=== PATIENT | male | born 1960 | race Caucasian/White ===

== ENCOUNTER 2019-02-06 16:26 | Inpatient (IN) | payer OTHER, SELFPAY ==
[2019-02-06] VITALS (12 sets, daily range): BP systolic 135–148; BP diastolic 82–99; PULSE 99–123; RESP 14–28; TEMP 36.9–37.1; O2SAT 82–91; BMI 30.9; BMI 30.1
--- NOTE | 2019-02-06 16:40 | EKG12_ITS ---
Test Reason : SOB Blood Pressure : / mmHG Vent. Rate : 109 BPM Atrial Rate : 109 BPM P-R Int : 190 ms QRS Dur : 094 ms QT Int : 328 ms P-R-T Axes : 065 139 033 degrees QTc Int : 441 ms Sinus tachycardia Possible Left atrial enlargement Incomplete right bundle branch block Left posterior fascicular block Anterior infarct , age undetermined Abnormal ECG Confirmed by KENJI ALFARO, ALETA ([id number]), clinical editor HANNAH HERNANDEZ ([id number]) on 02/09/2019 4:14:38 PM Referred By: GERSON Confirmed By:ALETA PHILLIP MD
--- NOTE | 2019-02-06 16:42 | ED.VISSUMM ---
- ER Visit Summary Date of Service: 02/06/19 Chief Complaint: Shortness of breath History of Present Illness: The patient is a 58 M who presents with shortness of breath for about a month, as well as edema in his lower extremities it got much worse today. No fever chills he has a dry cough that has not worsened recently. Physical Examination: Patient appears in respiratory distress his pulse ox is 80 at room air He is got diminished breath sounds bilaterally. He has a regular tachycardia He is a soft nontender abdomen He is got bilateral symmetric pitting edema. Otherwise see template Emergency Department Course and Treatment: Patient is found to have severe COPD, there are no signs of infection, he is hypoxic will need oxygen, atraumatic peptides unremarkable but he may benefit from an echocardiogram, I do believe however his symptoms are secondary to his COPD. 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 His lower extremity edema is symmetric, I will have her get a PE study. Regardless patient will be admitted. There are no evidence of infection or sepsis at this time. Disposition: Admit in guarded condition Impression: COPD exacerbation Hypoxia This note was generated with [employer] dictation software. It may contain incorrect words, spelling, and punctuation that were not noted in review of the chart prior to signing
[2019-02-06] MEDS: MethylPREDNISolone 125 MG/2 ML Vial IV (16:46)
[2019-02-06] MEDS: Albuterol 2.5 MG/3 ML VIAL.NEB. INHALATION ×3 (16:49→17:02)
[2019-02-06] MEDS: Ipratropium/Albuterol Sulfate 3 ML AMPUL.NEB INHALATION ×2 (16:49→22:30)
[2019-02-06 17:12] LABS: Anion Gap 3 (5-15); BUN 19 mg/dL (7-18); BUN/Creat Ratio 23.2 RATIO (10-20); Calcium,Total 7.9 mg/dL (8.5-10.1); Chloride 99 mmol/L (98-107); Creatinine, Serum 0.82 mg/dL (0.70-1.30); EST Glomerular Filtration Rate 103 mL/min (>60); Est Glom Filt Rate - Afr Amer 124 mL/min (>60); Estimated Creatinine Clearance 110.97 ml/min; Glucose 99 mg/dL (74-106); Sodium Level 138 mmol/L (136-145)
[2019-02-06 17:13] LABS: Absolute Lymphocyte Count 2.09 X10^3/ul (0.83-4.51); Absolute Neutrophil Count 8.5 X10^3/uL (2.0-7.7); Basophil# 0.07 X10^3/uL; Basophil% 0.6 % (0-1); Eosinophils% 1.7 % (0-5); Hemoglobin 17.7 g/dl (13.0-16.5); Lymphocyte # 2.09 X10^3/ul (4.0); Lymphocyte % 17.4 % (19-41); Mean Corp Hgb Conc 30.2 g/gl (32-36); Mean Corpuscular Volume 86.2 fL (80-94); Monocyte# 1.15 X10^3/uL; Monocyte% 9.6 % (0-10); Neutrophil # 8.45 X10^3/uL (2.7-7.7); Neutrophil % 70.4 % (47-70); Platelet Count 164 K/mm3 (150-450); RBC Distribution Width CV 18.7 % (11.6-14.6); Red Blood Count 6.81 M/mm3 (4.6-6.2)
[2019-02-06 17:30] LABS: Hematocrit 58.7 % (40-54)
[2019-02-06 17:31] LABS: Differential Indicated SCAN CRITERIA MET; POSITIVE COUNT YES; POSITIVE DIFFERENTIAL NO; POSITIVE MORPHOLOGY YES
--- NOTE | 2019-02-06 17:35 | RAD_ITS ---
STUDY: X-RAY CHEST REASON FOR EXAM: Male, 58 years old. Shortness of breath TECHNIQUE: 1 view COMPARISON: None. FINDINGS: Marked emphysematous changes of the upper lobes. Diffuse interstitial changes most likely chronic in nature in the bilateral lower lung zones. Small geometric type can fluid and basilar opacities evident acute or chronic nature. Otherwise negative for major consolidation or pleural effusion. Normal size heart. Normal mediastinum and bel. Normal visualized pulmonary arteries. There is atherosclerotic tortuosity of the aortic arch and descending thoracic aorta. Normal visualized thoracic spine. Normal visualized ribs, clavicles, and shoulders. There is no demonstrated abnormality of the visualized soft tissue structures of the upper abdomen. RAD/Chest 1 View (Portable) IMPRESSION: Severe changes of COPD with marked emphysema of the upper lobes and diffuse interstitial changes of the mid and lower lung zones which are probably mostly chronic in nature. Occasional small geometric confluent opacity likely to be fibrosis or atelectasis. Negative for a major area of consolidation, pleural effusion or cardiomegaly. No prior exams available for comparison. Electronically Signed: Ligia Alvarez MD at 18:04 EDT , Service support ,
[2019-02-06 17:37] LABS: Anisocytosis 2+; Platelet Estimate ADEQUATE (ADEQ); Polychromasia RARE; Stomatocyte 1+
[2019-02-06 17:38] LABS: Immature Platelet Fraction 11.3 % (1.0-7.9); RET-HE 18.3 pg (30-35); Reticulocyte Count 2.58 % (0.5-1.5)
[2019-02-06 18:01] LABS: BNP,B-Type NATRIURETIC PEPTIDE 459.1 pg/mL (0-100)
--- NOTE | 2019-02-06 19:06 | CT_ITS ---
STUDY: CTA CHEST REASON FOR EXAM: Male, 58 years old. Shortness of breath, edema and COPD. RADIATION DOSAGE (If Supplied By Facility): CTDIvol = ( 21.05 ) mGy, DLP = ( 497.36 ) mGycm TECHNIQUE: The examination was performed with the intravenous administration of 100ML IV Isovue 370. Post-processing of the angiographic images was performed, with multiplanar reformation and 3D reconstruction. Individualized dose optimization techniques were used for this CT. COMPARISON: Portable chest exam of February 06, 2019 FINDINGS: The exam is not ideal for exclusion of pulmonary embolus as the contrast bolus is fairly diffuse present throughout the pulmonary and systemic system. Normal enhancement of the main pulmonary artery and right and left pulmonary arteries. Grossly negative for small peripheral pulmonary emboli. Diameter of the pulmonary artery is 4 cm which exceeds the diameter of the aorta at the same level. Mild elongation and plaque of the aorta without aneurysm or dissection. Normal heart and pericardium. Coronary calcifications. Shotty bilateral hilar lymph nodes right greater than left. Shotty subcentimeter mediastinal lymph nodes. Severe emphysematous changes of the upper lobes with larger more extensive bullous formation in the left upper lobe. Posterior bilateral lower lobe consolidation and volume loss, right greater than left. Minimal right pleural effusion. Generalized anasarca. Distended inferior vena cava. Normal osseous structures. Normal visualized upper abdomen. CT/CTA Chest W/WO Contrast IMPRESSION: Grossly negative for pulmonary embolus. Somewhat suboptimal for small peripheral pulmonary emboli secondary to flow artifact as the bolus is diffuse on the pulmonary and systemic side. Mild atherosclerotic changes of the thoracic aorta without aneurysm or dissection. Normal cardiac size with coronary calcifications. Dilated pulmonary arteries suggesting pulmonary artery hypertension. Severe bullous emphysematous changes with the most severe changes in the left upper lobe. Posterior lower lobe consolidation and volume loss, right greater than left. Pneumonic infiltrates not excludable. Minimal right pleural effusion. Shoddy hilar and mediastinal lymph nodes. Generalized anasarca with a distended inferior vena cava. Electronically Signed: Ligia Alvarez MD at 20:54 EDT , Service support ,
[2019-02-06] MEDS: Ibuprofen 600 MG Tablet PO (19:08)
--- NOTE | 2019-02-06 19:10 | HP.PCM_ITS ---
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 Also, patient complains of a six-month history of shortness of breath and with progressively worsening shortness of breath in the last week. He has a nonproductive cough especially at night. He think that his cough has not changed from his baseline. He denies any orthopnea or paroxysmal nocturnal dyspnea. At emergency department patient oxygen saturation was 80% on room air and on 5 L his oxygen saturation was 88%. His BNP on admission was 459.1. Patient does not follow-up with a marine engineering consultant. After emergency department doctor discussed the case emergency department doctor elected to order a CTPA of patient's chest. Past Medical History Medical History: Medical History (Last Updated 02/06/19 @ 19:46 by James Mancia MD) Gout M10.9 COPD (chronic obstructive pulmonary disease) J44.9 HTN (hypertension) I10 Allergies No Known Allergies Allergy (Verified 02/06/19 16:37) Home Medications: Ambulatory Orders Medication Instructions Recorded Allopurinol 300 mg PO DAILY 02/06/19 Amlodipine [Norvasc] 2.5 mg PO DAILY 02/06/19 Indomethacin [Indocin] 25 mg PO BID PRN 02/06/19 Lisinopril 40 mg PO DAILY 02/06/19 Surgical History: - - Knee cartilage surgery Lives: Alone Smoking Status: Current every day smoker Alcohol: Occasional - *Family History Maternal History Items: Cancer Paternal History Items: Heart Disease Review of Systems Constitutional: Denies: Chills, Fever, Weight Change HEENT: Denies: Head Aches, Sinus Congestion, Sinus Drainage Cardiovascular: Reports: Edema. Denies: Chest Pain, Palpitations Respiratory: Reports: Cough, Shortness of breath upon exertion Gastrointestinal: Denies: Abdominal Pain, Nausea, Vomiting Genitourinary: Denies: Dysuria Musculoskeletal: Denies: Joint Pain, Joint Tenderness Skin: Denies: Rash, Wounds Neurological: Denies: Numbness, Tingling, Focal weakness Psychiatric: Denies: Anxiety, Depression, Homicidal Ideations, Suicidal Ideations Hematologic/ Lymphatic: Denies: Easy Bruising, Easy Bleeding VTE Information - Inpt Only VTE Present on Admission: No VTE Mechan Device Prophylaxis: None VTE Pharm Prophylaxis ordered?: Yes Patient Problems: Active and Suspected Problems (Last Updated 02/06/19 @ 19:46 by James Mancia MD) Acute hypoxemic respiratory failure (Acute) Bilateral lower extremity edema (Acute) - Physical Exam General: Alert, Oriented x3, Cooperative HEENT: Atraumatic, PERRLA, EOMI, Normocephalic Neck: Supple, No JVD, Negative Carotid Bruits Lungs: Diminished, Tachypneic, Wheezes Cardiovascular: Normal S1, Normal S2, No murmurs, Tachycardic Abdomen: Bowel Sounds Present, Soft, Non Tender Extremities: Capillary Refill Less than 3 Seconds, Edema - Bilateral lower extremity pitting edema, 4+. Skin: No rashes, No breakdown Musculoskeletal: No Tenderness to Palpation of Joints or Extremities Neurological: Neuro grossly intact Psych/Mental Status: Normal Affect, Appropriate Vital Signs Temp Pulse Resp BP Pulse Ox 98.6 F 107 H 14 145/96 H 89 02/06/19 16:28 02/06/19 19:04 02/06/19 19:04 02/06/19 19:04 02/06/19 19:04 Oxygen Flow Rate (L/min) 5 Oxygen Delivery Method Nasal Cannula Weight: 106.4 kg Body Mass Index (BMI) 30.9 Laboratory Tests Past 24 Hrs 02/06/19 02/06/19 02/06/19 16:35 16:35 16:35 WBC 12.0 H RBC 6.81 H Hgb 17.7 H Hct 58.7 H MCV 86.2 MCH 26.0 L MCHC 30.2 L RDW 18.7 H RDW Differential 59.0 H Plt Count 164 Immature Gran % (Auto) 0.300 Neut % (Auto) 70.4 H Lymph % (Auto) 17.4 L [place] % (Auto) 9.6 Eos % (Auto) 1.7 Baso % (Auto) 0.6 Absolute Neuts (auto) 8.5 H Absolute Lymphs (auto) 2.09 Total Counted Not Reportable Platelet Estimate ADEQUATE Immature Plt Fraction 11.3 H Polychromasia RARE Anisocytosis 2+ Stomatocytes 1+ Retic Count 2.58 H Retic Hgb Equivalent 18.3 L Sodium 138 Potassium 5.0 Chloride 99 Carbon Dioxide 36.0 H Anion Gap 3 L BUN 19 H Creatinine 0.82 Estim Creat Clear Calc 110.97 Est GFR (MDRD) Af Amer 124 Est GFR (MDRD) Non-Af 103 BUN/Creatinine Ratio 23.2 H Glucose 99 Calcium 7.9 L Troponin I < 0.015 B-Natriuretic Peptide 459.1 H Assessment/Plan All Active Problems (Last Updated 02/06/19 @ 19:46 by James Mancia MD) Acute hypoxemic respiratory failure (Acute) Bilateral lower extremity edema (Acute) 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 Acute hypoxemic respiratory failure Different diagnosis include acute elevation of COPD; heart failure; pulmonary embolism; pulmonary fibrosis; interstitial lung disease or other. Patient received Solu-Medrol and breathing treatment at emergency department. We will continue Solu-Medrol. Scheduled DuoNeb. Albuterol ordered. After emergency department doctor discussed the case emergency department doctor elected to order a CTPA of patient's chest. We will follow results of CTPA. Consider discussing case with marine engineering consultant. In long-term patient may need to follow up with a marine engineering consultant. Continue oxygen supplementation. Bilateral leg swelling. Differential diagnosis include DVT; heart failure or other. We will wait for CTPA and consider further management. Will consider Lasix if CTPA is negative Echocardiogram ordered. Tobacco abuse Counselled Patient reported that he threw away his last package of tobacco. Nicotine patch ordered. DVT prophylaxis Will order Lovenox subcutaneous. Depending upon results of CTPA will change Lovenox dose. Code Visit Inpatient E&M: 58883 Init Hosp L3
--- NOTE | 2019-02-06 19:30 | ECHOD_ITS ---
Reason For Study: DYSPNEA Procedure This was a 2D Doppler, Color Flow transthoracic echocardiogram. The exam was of adequate technical quality. Exam performed portable in patient room. Left Ventricle Normal LV size. D shaped septum in systole and diastole. Mild concentric left ventricular hypertrophy. Left ventricular systolic function is hyperdynamic. The estimated ejection fraction is 75 %. Transmitral doppler flow suggestive of impaired relaxation of left ventricle. No regional wall motion abnormalities noted. Right Ventricle Mild to moderately dilated right ventricle. Mild to moderate global right ventricular systolic dysfunction. Atria The left atrium is mildly enlarged. The right atrium is moderately enlarged. No doppler evidence for ASD. Mitral Valve There is no mitral annular calcification. Normal mitral valve. Trivial mitral valve insufficiency. Tricuspid Valve Normal tricuspid valve. Mild tricuspid valve insufficiency. Right ventricular systolic pressure estimated to be 55 mmHg. Aortic Valve Trisinus/trileaflet aortic valve. Normal aortic valve. Pulmonic Valve The pulmonic valve is not well visualized. Great Vessels Normal sized aortic root. Pericardium/Pleural No pericardial effusion. MMode/2D Measurements & Calculations LVIDd: 4.1 cm IVSd: 1.4 cm Ao root diam: 3.4 cm LVIDs: 2.3 cm LVPWd: 1.3 cm RVDd: 4.8 cm FS: 43.1 % LAV(MOD-bp): 62.5 ml LA A4 area: 20.5 cm2 LA dimension(2D): 3.9 cm LAV(MOD-bp) Indexed: 29.0 ml/m2 LAV(MOD-sp2): 68.3 ml LAV(MOD-sp4): 56.7 ml RA A4 area: 30.3 cm2 Time Measurements MV dec time: 0.26 sec Doppler Measurements & Calculations MV E max emre: 73.3 cm/sec Lat Peak E' Emre: 13.9 cm/sec Med Peak E' Emre: 8.7 cm/sec MV A max emre: 95.2 cm/sec E/E' lat: 5.3 E/E' med: 8.4 MV E/A: 0.77 Ao V2 max: 171.8 cm/sec LV V1 max: 166.0 cm/sec PA V2 max: 103.4 cm/sec Ao max P.8 mmHg LV V1 max P.0 mmHg TR max emre: 317.7 cm/sec TR max P.4 mmHg Interpretation Summary Left ventricular systolic function is hyperdynamic. The estimated ejection fraction is 75 %. D shaped septum in systole and diastole. Mild concentric left ventricular hypertrophy. Mild to moderately dilated right ventricle. Mild to moderate global right ventricular systolic dysfunction. The left atrium is mildly enlarged. The right atrium is moderately enlarged. Trivial mitral valve insufficiency. Mild tricuspid valve insufficiency. Right ventricular systolic pressure estimated to be 55 mmHg c/w pulmonary hypertension. Transmitral doppler flow suggestive of impaired relaxation of left ventricle Ordering Physician: James Mancia Performed By: Kyara Maki, RAMBO, RVT
[2019-02-06 21:16] LABS: Albumin, Serum 2.9 g/dL (3.2-5.0)
[2019-02-06] MEDS: 0.9% NaCl Peripheral Flush Adult/Peds IV ×2 (23:01→23:03)
[2019-02-06] MEDS: Furosemide 40 MG/4 ML Vial IV (23:01)
[2019-02-07] VITALS (16 sets, daily range): BP systolic 98–128; BP diastolic 57–83; PULSE 85–114; RESP 15–18; TEMP 36.6–37.2; O2SAT 88–92
[2019-02-07] MEDS: Furosemide 40 MG/4 ML Vial IV ×2 (05:16→17:07)
[2019-02-07] MEDS: 0.9% NaCl Peripheral Flush Adult/Peds IV ×5 (05:16→21:05)
[2019-02-07 06:35] LABS: Absolute Lymphocyte Count 0.61 X10^3/ul (0.83-4.51); Absolute Neutrophil Count 8.6 X10^3/uL (2.0-7.7); Basophil# 0.01 X10^3/uL; Basophil% 0.1 % (0-1); Lymphocyte # 0.61 X10^3/ul (4.0); Lymphocyte % 6.4 % (19-41); Mean Corp Hgb Conc 29.3 g/gl (32-36); Mean Corpuscular Hgb 26.2 pg (27.0-32.0); Mean Corpuscular Volume 89.6 fL (80-94); Monocyte# 0.34 X10^3/uL; Monocyte% 3.5 % (0-10); Neutrophil # 8.61 X10^3/uL (2.7-7.7); Neutrophil % 89.7 % (47-70); Platelet Count 155 K/mm3 (150-450); RBC Distribution Width CV 18.7 % (11.6-14.6); RBC Distribution Width SD 60.3 fl (35.1-43.9); White Blood Count 9.6 K/mm3 (4.4-11.0)
[2019-02-07 06:37] LABS: Anion Gap -1 (5-15); BUN 20 mg/dL (7-18); BUN/Creat Ratio 20.7 RATIO (10-20); Calcium,Total 8.1 mg/dL (8.5-10.1); Chloride 96 mmol/L (98-107); Creatinine, Serum 0.96 mg/dL (0.70-1.30); EST Glomerular Filtration Rate 85 mL/min (>60); Est Glom Filt Rate - Afr Amer 103 mL/min (>60); Estimated Creatinine Clearance 94.79 ml/min; Glucose 165 mg/dL (74-106); Magnesium 1.9 mg/dL (1.6-2.6); Potassium 4.8 mmol/L (3.5-5.1); Sodium Level 139 mmol/L (136-145)
[2019-02-07] MEDS: Ipratropium/Albuterol Sulfate 3 ML AMPUL.NEB INHALATION ×3 (06:50→19:15)
[2019-02-07 06:59] LABS: Red Blood Count 7.05 M/mm3 (4.6-6.2)
[2019-02-07 07:02] LABS: Hematocrit 63.2 % (40-54)
[2019-02-07 07:03] LABS: Differential Indicated SCAN CRITERIA MET; Hemoglobin 18.5 g/dl (13.0-16.5); POSITIVE COUNT YES; POSITIVE DIFFERENTIAL NO; POSITIVE MORPHOLOGY YES
[2019-02-07 07:11] LABS: Burr Cells 1+; Platelet Estimate ADEQUATE (ADEQ)
--- NOTE | 2019-02-07 07:48 | PCM.PROGNOTE ---
Patient Problems: Active and Suspected Problems (Last Updated 02/06/19 @ 19:46 by James Mancia MD) Acute hypoxemic respiratory failure (Acute) Bilateral lower extremity edema (Acute) Subjective: Chief complaint: Follow-up after admission for acute hypoxic respiratory failure secondary to acute COPD exacerbation and probable acute diastolic CHF. Patient seen and examined. No acute events overnight. Patient is feeling better, reported improvement of his symptoms, feels less short of breath. Still feeling of cough. Still complaining of bilateral leg edema and that was his main presenting symptom. He denied chest pain. He is afebrile, started recorded, blood pressure stable, pulse ox is 92% on 7 L. - Physical Exam General: Alert, Oriented x3, Cooperative, - - Moderately short of breath. HEENT: Atraumatic, PERRLA, EOMI, Normocephalic Oral: Moist Mucosa, No Gingival or Mucosal Lesions/ Ulcerations Neck: Supple, No JVD, Negative Carotid Bruits, Trachea Midline, Thyroid Normal Size and Texture Lungs: Rhonchi, Short of Breath, Wheezes, - - Decreased breath sounds bilateral, bilateral rhonchi, wheezes. Cardiovascular: Regular rate, Regular Rhythm, Normal S1, Normal S2, PMI Normal, Tachycardic Abdomen: Bowel Sounds Present, Soft, Non Tender, Non-Distended, No Hepato-splenomegaly, Obese Extremities: No clubbing, No cyanosis, Edema - ++ Edema. Skin: No rashes, No breakdown Lymphatic: No Cervical, Supraclavicular, or Inguinal Adenopathy Neurological: Motor Exam 5/5 strength throughout Psych/Mental Status: Normal Affect, Appropriate, Alert and oriented to time, place, person, mood and affect Vital Signs Temp Pulse Resp BP Pulse Ox 97.9 F 110 H 18 123/79 H 91 02/07/19 05:12 02/07/19 07:03 02/07/19 05:12 02/07/19 05:12 02/07/19 05:12 Oxygen Flow Rate (L/min) 7 Oxygen Delivery Method Nasal Cannula Weight: 224 lb 10.417 oz Body Mass Index (BMI) 30.1 Intake and Output for Last 24 Hours 02/05/19 02/06/19 02/07/19 23:59 23:59 23:59 Intake Total 120 / 120 Output Total 600 / 600 Balance 120 / 120 -600 / -600 Laboratory Tests Past 24 Hrs 02/06/19 02/06/19 02/06/19 16:35 16:35 16:35 WBC 12.0 H RBC 6.81 H Hgb 17.7 H Hct 58.7 H MCV 86.2 MCH 26.0 L MCHC 30.2 L RDW 18.7 H RDW Differential 59.0 H Plt Count 164 Immature Gran % (Auto) 0.300 Neut % (Auto) 70.4 H Lymph % (Auto) 17.4 L [place] % (Auto) 9.6 Eos % (Auto) 1.7 Baso % (Auto) 0.6 Absolute Neuts (auto) 8.5 H Absolute Lymphs (auto) 2.09 Total Counted Not Reportable Differential Comment Platelet Estimate ADEQUATE Immature Plt Fraction 11.3 H Polychromasia RARE Anisocytosis 2+ Stomatocytes 1+ [place] Cells Retic Count 2.58 H Retic Hgb Equivalent 18.3 L Sodium 138 Potassium 5.0 Chloride 99 Carbon Dioxide 36.0 H Anion Gap 3 L BUN 19 H Creatinine 0.82 Estim Creat Clear Calc 110.97 Est GFR (MDRD) Af Amer 124 Est GFR (MDRD) Non-Af 103 BUN/Creatinine Ratio 23.2 H Glucose 99 Calcium 7.9 L Ionized Calcium Magnesium Troponin I < 0.015 B-Natriuretic Peptide 459.1 H Albumin 02/06/19 02/07/19 02/07/19 16:35 05:38 05:38 WBC 9.6 RBC 7.05 H Hgb 18.5 H* Hct 63.2 H MCV 89.6 MCH 26.2 L MCHC 29.3 L RDW 18.7 H RDW Differential 60.3 H Plt Count 155 Immature Gran % (Auto) 0.300 Neut % (Auto) 89.7 H Lymph % (Auto) 6.4 L [place] % (Auto) 3.5 Eos % (Auto) 0.0 Baso % (Auto) 0.1 Absolute Neuts (auto) 8.6 H Absolute Lymphs (auto) 0.61 L Total Counted Not Reportable Differential Comment Platelet Estimate ADEQUATE Immature Plt Fraction Polychromasia Anisocytosis Stomatocytes [place] Cells 1+ Retic Count Retic Hgb Equivalent Sodium Potassium Chloride Carbon Dioxide Anion Gap BUN Creatinine Estim Creat Clear Calc Est GFR (MDRD) Af Amer Est GFR (MDRD) Non-Af BUN/Creatinine Ratio Glucose Calcium Ionized Calcium Pending Magnesium Troponin I B-Natriuretic Peptide Albumin 2.9 L 02/07/19 05:38 WBC RBC Hgb Hct MCV MCH MCHC RDW RDW Differential Plt Count Immature Gran % (Auto) Neut % (Auto) Lymph % (Auto) [place] % (Auto) Eos % (Auto) Baso % (Auto) Absolute Neuts (auto) Absolute Lymphs (auto) Total Counted Differential Comment Platelet Estimate Immature Plt Fraction Polychromasia Anisocytosis Stomatocytes [place] Cells Retic Count Retic Hgb Equivalent Sodium 139 Potassium 4.8 Chloride 96 L Carbon Dioxide 44.0 H Anion Gap -1 L BUN 20 H Creatinine 0.96 Estim Creat Clear Calc 94.79 Est GFR (MDRD) Af Amer 103 Est GFR (MDRD) Non-Af 85 BUN/Creatinine Ratio 20.7 H Glucose 165 H Calcium 8.1 L Ionized Calcium Magnesium 1.9 Troponin I B-Natriuretic Peptide Albumin Clinical Impression(s) from Imaging Studies Chest X-Ray 02/06/19 17:35 IMPRESSION: Severe changes of COPD with marked emphysema of the upper lobes and diffuse interstitial changes of the mid and lower lung zones which are probably mostly chronic in nature. Occasional small geometric confluent opacity likely to be fibrosis or atelectasis. Negative for a major area of consolidation, pleural effusion or cardiomegaly. No prior exams available for comparison. Electronically Signed: Ligia Alvarez MD at 18:04 EDT , Service support , Chest CTA 02/06/19 19:06 IMPRESSION: Grossly negative for pulmonary embolus. Somewhat suboptimal for small peripheral pulmonary emboli secondary to flow artifact as the bolus is diffuse on the pulmonary and systemic side. Mild atherosclerotic changes of the thoracic aorta without aneurysm or dissection. Normal cardiac size with coronary calcifications. Dilated pulmonary arteries suggesting pulmonary artery hypertension. Severe bullous emphysematous changes with the most severe changes in the left upper lobe. Posterior lower lobe consolidation and volume loss, right greater than left. Pneumonic infiltrates not excludable. Minimal right pleural effusion. Shoddy hilar and mediastinal lymph nodes. Generalized anasarca with a distended inferior vena cava. Electronically Signed: Ligia Alvarez MD at 20:54 EDT , Service support , Medical Necessity - Tobacco Use Smoking Status: Current every day smoker Tobacco Use: Cigarettes Assessment/Plan All Active Problems (Last Updated 02/06/19 @ 19:46 by James Mancia MD) Acute hypoxemic respiratory failure (Acute) Bilateral lower extremity edema (Acute) This is a 58 years old male patient presented to the emergency room because of shortness of breath and bilateral leg edema, found to have acute COPD exacerbation complicated by acute hypoxic respiratory failure and also found to have probable acute diastolic CHF. #1 acute COPD exacerbation: Chest x-ray reviewed findings consistent with severe COPD and emphysema, no acute infiltrate or consolidation. CTA chest showed no PE or dissection, severe bullous emphysematous changes. Patient is on IV steroids, bronchodilators. He reported some improvement of his symptoms but still requiring oxygen up to 7 L. Plan: Continue same treatment, pulmonology consult. #2 acute hypoxic respiratory failure: Secondary to above in addition to probable acute CHF. Patient mentioned that he never been oxygen at home. He is on IV steroids, IV diuretics and bronchodilators. Plan as above. #3 probable acute diastolic CHF: This is based on symptoms of shortness of breath, leg edema, elevated BNP CTA findings of anasarca and distended inferior vena cava. Patient is on IV Lasix. 2D echocardiogram ordered. #4 polycythemia: Probably secondary to chronic hypoxia and exacerbated by IV diuretics. Plan to decrease IV Lasix to 40 mg IV every 12 hours, patient will need home oxygen. #5 hypertension: Blood pressure stable, continue lisinopril and Norvasc. #6 tobacco abuse: Continue NicoDerm patch. Highly recommended to quit smoking. #7 DVT prophylaxis: Subcu Lovenox. This note was generated with [employer] dictation software. It may contain incorrect words, spelling, and punctuation that were not noted in checking the note before signing. Code Visit Inpatient E&M: 74175 Subs Hosp L2
[2019-02-07] MEDS: Allopurinol 300 MG Tablet PO (08:12)
[2019-02-07] MEDS: Lisinopril 40 MG Tablet PO (08:20)
[2019-02-07] MEDS: Enoxaparin 40 MG/0.4 ML Syringe SC (08:20)
[2019-02-07] MEDS: amLODIPine 2.5 MG Tablet PO (08:20)
--- NOTE | 2019-02-07 08:21 | VDLE_ITS ---
Reason For Study: SWELLING RIGHT LEFT GSV is normal. GSV is normal. CFV is compressible, spontaneous, competent CFV is compressible, spontaneous, competent, and demonstrates pulsatile venous flow. and demonstrates pulsatile venous flow. FV is compressible, spontaneous, phasic, FV is compressible, spontaneous, phasic, competent and demonstrates normal competent and demonstrates normal augmentation. augmentation. POP V is compressible, spontaneous, phasic, POP V is compressible, spontaneous, phasic, competent and demonstrates normal competent and demonstrates normal augmentation. augmentation. T/P Trunk is compressible. T/P Trunk is compressible. PTV is compressible. PTV is compressible. RT PerV is compressible. LT PerV is compressible. Procedure Exam performed portable in patient room. A preliminary report was called and/or faxed to [facility]. Interpretation Summary Deep veins of the lower extremities are bilaterally patent and compressible segmentally. There is no evidence of deep vein thrombosis on either side. Valvular competence appears intact within the proximal deep venous systems bilaterally. The greater saphenous veins appear bilaterally patent and compressible segmentally. A non-vascular, hypoechoic structure is noted in the popliteal space bilaterally, which may represent popliteal cysts. Clinical correlation is advised. Ordering Physician: Satinder Clark Performed By: Kyara Maki, RAMBO, RVT
--- NOTE | 2019-02-07 10:05 | CON.PCM_ITS ---
Problem List (1) COPD (chronic obstructive pulmonary disease) Status: Chronic Qualifiers: COPD type: emphysema Emphysema type: centrilobular Qualified Code(s): J43.2 - Centrilobular emphysema (2) Acute hypoxemic respiratory failure Status: Acute (3) Bilateral lower extremity edema Status: Acute Reason for Consult Date of Consultation: 02/07/19 Reason for Consultation: COPD History of Present Illness: The patient is a 58 year old M, with no reported past medical history secondary to lack of evaluation, who presented to [facility] on 02/06/2019 secondary to progressive shortness of breath. Patient states that he has had progressive shortness of breath over the last month or so, but came in mainly because of significant swelling of his lower extremities. Patient does have a cough at baseline, but does not believe this was significantly worsened. Patient denied any fevers, chills, nausea or vomiting. On evaluation in the ER, patient was noted to be 80% at room air. Patient had diminished breath sounds. Patient did have a CT PE that was not diagnostic of any central obstruction, but did not have any infiltrates. Patient was admitted to the floor for further evaluation. On my arrival, patient was breathing comfortably on 7 L nasal cannula oxygen. Patient does state that he is smoked over 50 pack years, but is not routinely followed by physicians. 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 Patient has never used an inhaler, obtained a pulmonary function test or seen a butter grader. Patient does report dyspnea on exertion, but is unable to quantify his exercise tolerance. Patient denies any exposure to asbestos or TB. Patient appears to have very poor insight into his overall condition and was significantly upset by discussions about possibly needing supplemental oxygen at baseline. Patient had a negative review of systems following this discussion. Past Medical History Past Medical History (Chronic Problems): Chronic Problems (Last Updated 02/06/19 @ 19:46 by James Mancia MD) COPD (chronic obstructive pulmonary disease) (Chronic) Medical History: Medical History (Last Updated 02/06/19 @ 19:46 by James Mancia MD) Gout M10.9 COPD (chronic obstructive pulmonary disease) J44.9 HTN (hypertension) I10 Allergies No Known Allergies Allergy (Verified 02/06/19 16:37) Home Medications: Ambulatory Orders Medication Instructions Recorded Allopurinol 300 mg PO DAILY 02/06/19 Amlodipine [Norvasc] 2.5 mg PO DAILY 02/06/19 Indomethacin [Indocin] 50 mg PO BID PRN 02/06/19 Lisinopril 40 mg PO DAILY 02/06/19 Surgical History: - - Knee cartilage surgery Lives: Alone Smoking Status: Current every day smoker Tobacco Use: Cigarettes Alcohol: Occasional - *Family History Maternal History Items: Cancer Paternal History Items: Heart Disease Review of Systems Unable to obtain accurate/complete ROS d/t: See HPI Patient Problems: Active and Suspected Problems (Last Updated 02/06/19 @ 19:46 by James Mancia MD) Acute hypoxemic respiratory failure (Acute) Bilateral lower extremity edema (Acute) Objective: CT scan of the chest was personally reviewed showing extensive emphysematous changes in the apices, left greater than right. No acute infiltrates were appreciated. Patient does have dilated pulmonary arteries on my review. - Physical Exam General: Alert, Oriented x3, Cooperative, No apparent distress, - - No conversational dyspnea noted. Appears older than stated age. HEENT: Atraumatic, PERRLA, EOMI, Normocephalic, - - Slight scleral injection without icterus Oral: Moist Mucosa, No Gingival or Mucosal Lesions/ Ulcerations, - - Fair dentition Neck: Supple, No Nodes, Trachea Midline, JVD, Right Lungs: No rhonchi, No wheeze, No rales, Diminished, - - Symmetric expansion. No dullness to percussion. Cardiovascular: Regular rate, Regular Rhythm, Normal S1, Normal S2, No murmurs, No rub noted, No Gallop Abdomen: Bowel Sounds Present, Soft, Non Tender, Non-Distended Extremities: No cyanosis, Clubbing, Edema - 3+ lower extremity edema Skin: - - Venous stasis changes to lower extremities Musculoskeletal: No Tenderness to Palpation of Joints or Extremities, No Muscle Wasting Lymphatic: No Cervical, Supraclavicular, or Inguinal Adenopathy Neurological: Cranial nerves II-XII grossly intact, Neuro grossly intact - Does have decreased sensation of lower extremities Psych/Mental Status: Alert and oriented to time, place, person, mood and affect Vital Signs Temp Pulse Resp BP Pulse Ox 36.7 C 105 H 18 102/60 89 02/07/19 08:45 02/07/19 08:45 02/07/19 08:45 02/07/19 08:45 02/07/19 08:45 Oxygen Flow Rate (L/min) 8 Oxygen Delivery Method Nasal Cannula Weight: 101.9 kg Body Mass Index (BMI) 30.1 Intake and Output for Last 24 Hours 02/05/19 02/06/19 02/07/19 23:59 23:59 23:59 Intake Total 120 / 120 Output Total 600 / 600 Balance 120 / 120 -600 / -600 Laboratory Tests Past 24 Hrs 02/06/19 02/06/19 02/06/19 16:35 16:35 16:35 WBC 12.0 H RBC 6.81 H Hgb 17.7 H Hct 58.7 H MCV 86.2 MCH 26.0 L MCHC 30.2 L RDW 18.7 H RDW Differential 59.0 H Plt Count 164 Immature Gran % (Auto) 0.300 Neut % (Auto) 70.4 H Lymph % (Auto) 17.4 L [place] % (Auto) 9.6 Eos % (Auto) 1.7 Baso % (Auto) 0.6 Absolute Neuts (auto) 8.5 H Absolute Lymphs (auto) 2.09 Total Counted Not Reportable Differential Comment Platelet Estimate ADEQUATE Immature Plt Fraction 11.3 H Polychromasia RARE Anisocytosis 2+ Stomatocytes 1+ Vanessa Cells Retic Count 2.58 H Retic Hgb Equivalent 18.3 L Sodium 138 Potassium 5.0 Chloride 99 Carbon Dioxide 36.0 H Anion Gap 3 L BUN 19 H Creatinine 0.82 Estim Creat Clear Calc 110.97 Est GFR (MDRD) Af Amer 124 Est GFR (MDRD) Non-Af 103 BUN/Creatinine Ratio 23.2 H Glucose 99 Calcium 7.9 L Ionized Calcium Magnesium Troponin I < 0.015 B-Natriuretic Peptide 459.1 H Albumin 02/06/19 02/07/19 02/07/19 16:35 05:38 05:38 WBC 9.6 RBC 7.05 H Hgb 18.5 H* Hct 63.2 H MCV 89.6 MCH 26.2 L MCHC 29.3 L RDW 18.7 H RDW Differential 60.3 H Plt Count 155 Immature Gran % (Auto) 0.300 Neut % (Auto) 89.7 H Lymph % (Auto) 6.4 L [place] % (Auto) 3.5 Eos % (Auto) 0.0 Baso % (Auto) 0.1 Absolute Neuts (auto) 8.6 H Absolute Lymphs (auto) 0.61 L Total Counted Not Reportable Differential Comment Platelet Estimate ADEQUATE Immature Plt Fraction Polychromasia Anisocytosis Stomatocytes [place]essa Cells 1+ Retic Count Retic Hgb Equivalent Sodium Potassium Chloride Carbon Dioxide Anion Gap BUN Creatinine Estim Creat Clear Calc Est GFR (MDRD) Af Amer Est GFR (MDRD) Non-Af BUN/Creatinine Ratio Glucose Calcium Ionized Calcium Pending Magnesium Troponin I B-Natriuretic Peptide Albumin 2.9 L 02/07/19 05:38 WBC RBC Hgb Hct MCV MCH MCHC RDW RDW Differential Plt Count Immature Gran % (Auto) Neut % (Auto) Lymph % (Auto) [place] % (Auto) Eos % (Auto) Baso % (Auto) Absolute Neuts (auto) Absolute Lymphs (auto) Total Counted Differential Comment Platelet Estimate Immature Plt Fraction Polychromasia Anisocytosis Stomatocytes [place] Cells Retic Count Retic Hgb Equivalent Sodium 139 Potassium 4.8 Chloride 96 L Carbon Dioxide 44.0 H Anion Gap -1 L BUN 20 H Creatinine 0.96 Estim Creat Clear Calc 94.79 Est GFR (MDRD) Af Amer 103 Est GFR (MDRD) Non-Af 85 BUN/Creatinine Ratio 20.7 H Glucose 165 H Calcium 8.1 L Ionized Calcium Magnesium 1.9 Troponin I B-Natriuretic Peptide Albumin Clinical Impression(s) from Imaging Studies Chest X-Ray 02/06/19 17:35 IMPRESSION: Severe changes of COPD with marked emphysema of the upper lobes and diffuse interstitial changes of the mid and lower lung zones which are probably mostly chronic in nature. Occasional small geometric confluent opacity likely to be fibrosis or atelectasis. Negative for a major area of consolidation, pleural effusion or cardiomegaly. No prior exams available for comparison. Electronically Signed: Ligia Alvarez MD at 18:04 EDT , Service support , Chest CTA 02/06/19 19:06 IMPRESSION: Grossly negative for pulmonary embolus. Somewhat suboptimal for small peripheral pulmonary emboli secondary to flow artifact as the bolus is diffuse on the pulmonary and systemic side. Mild atherosclerotic changes of the thoracic aorta without aneurysm or dissection. Normal cardiac size with coronary calcifications. Dilated pulmonary arteries suggesting pulmonary artery hypertension. Severe bullous emphysematous changes with the most severe changes in the left upper lobe. Posterior lower lobe consolidation and volume loss, right greater than left. Pneumonic infiltrates not excludable. Minimal right pleural effusion. Shoddy hilar and mediastinal lymph nodes. Generalized anasarca with a distended inferior vena cava. Electronically Signed: Ligia Alvarze MD at 20:54 EDT , Service support , Assessment/Plan All Active Problems (Last Updated 02/06/19 @ 19:46 by James Mancia MD) Acute hypoxemic respiratory failure (Acute) Bilateral lower extremity edema (Acute) RECOMMENDATIONS: 1. Agree with empiric steroids and diuresis 2. Change lower extremity Dopplers to stat 3. Possible need for oncology evaluation for phlebotomy 4. Walking oximetry prior to discharge 5. Outpatient complete PFT 6. Smoking cessation, nicotine patch if requested IMPRESSIONS: 1. Acute hypoxic respiratory insufficiency This is likely multifactorial. Patient does have advanced emphysematous changes noted on CT scan of the chest. Patient also has dilated pulmonary arteries, vena cava and lower extremity edema indicating probable diastolic congestive heart failure. Given patient's elevated hematocrit and routine prolonged immobility, evaluation of DVT would be appropriate. Wean oxygen as tolerated. Await echocardiogram. 2. Probable secondary polycythemia Given clubbing on exam and hemoglobin of 18, concern for prolonged hypoxemia secondary to COPD and probable secondary pulmonary hypertension. Patient would be at increased risk for thrombosis. Will obtain a lower extremity Doppler stat. If positive, anticoagulation would be indicated. If negative, may consider oncology evaluation for possible phlebotomy until hypoxemia can be controlled to decrease reticulocyte response. 3. Tobacco abuse/hypertension/poor primary follow-up Complicates care, management, recovery and prognosis. Nicotine patch can be added if necessary. Continue with lisinopril and Norvasc. Will need to watch renal function closely given NATHAN inhibitor and diuretics. Code Visit Inpatient E&M: 21016 Init Hosp L3
[2019-02-07 11:37] LABS: Hemoglobin A1c 6.6 % (4.2-6.3)
--- NOTE | 2019-02-07 12:47 | CM.UR ---
RN CM Assessment Met face to face with patient for initial transition planning/care coordination assessment. Introduced myself and my role. Verb understanding and agreement for assessment. 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 Presentation: shortness of breath PCP: Dr Hargrove (pronounced Cali). Specialists: None Preferred Pharmacy: His local [facility] in [place]. Insurance: [employer] through his provider. See scanned card. Prescription Benefit: yes LNOK: Lin Prabhu, Significant Other ADLs: Independent will all ADLs. Transportation: Self. DME: None SNF/HHC: None Passport/waiver employee benefits manager: NA Advance Directives: None--gave booklet and suggested him and s.o. discuss. Explained if he is interested in more--that he should use [place] forms since [place] is his home state. DC PLAN: Plan is to dc home. He is insistent that he cannot go home on oxygen. 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 Discussed and recommended he start making some [facility] plans. Explained even if we can wean from o2 this admission, chances are he will end up on it in the future. Verb understanding. Ivelisse Masterson RN, CCM.
[2019-02-07] MEDS: Indomethacin 25 MG Capsule 50 MG PO (14:52)
[2019-02-08] VITALS (16 sets, daily range): BP systolic 96–130; BP diastolic 61–79; PULSE 96–119; RESP 16–20; TEMP 36.6–37.3; O2SAT 86–92
[2019-02-08] MEDS: Furosemide 40 MG/4 ML Vial IV ×2 (05:07→17:28)
[2019-02-08] MEDS: 0.9% NaCl Peripheral Flush Adult/Peds IV ×4 (05:07→21:21)
[2019-02-08 05:42] LABS: Absolute Lymphocyte Count 0.97 X10^3/ul (0.83-4.51); Absolute Neutrophil Count 19.9 X10^3/uL (2.0-7.7); Basophil# 0.01 X10^3/uL; Lymphocyte # 0.97 X10^3/ul (4.0); Lymphocyte % 4.4 % (19-41); Mean Corp Hgb Conc 29.1 g/gl (32-36); Mean Corpuscular Hgb 25.1 pg (27.0-32.0); Mean Corpuscular Volume 86.4 fL (80-94); Mean Platelet Vol. 11.2 fl (6.2-12.0); Monocyte% 4.1 % (0-10); Neutrophil # 19.89 X10^3/uL (2.7-7.7); Neutrophil % 91.3 % (47-70); Platelet Count 166 K/mm3 (150-450); Red Blood Count 6.76 M/mm3 (4.6-6.2); White Blood Count 21.8 K/mm3 (4.4-11.0)
[2019-02-08 05:48] LABS: Hematocrit 58.4 % (40-54); POSITIVE COUNT NO; POSITIVE DIFFERENTIAL NO; POSITIVE MORPHOLOGY NO
[2019-02-08 05:55] LABS: BUN 26 mg/dL (7-18); BUN/Creat Ratio 31.6 RATIO (10-20); Calcium,Total 8.3 mg/dL (8.5-10.1); Carbon Dioxide > 45.0 mmol/L (21.0-32.0); Chloride 95 mmol/L (98-107); Creatinine, Serum 0.82 mg/dL (0.70-1.30); EST Glomerular Filtration Rate 102 mL/min (>60); Est Glom Filt Rate - Afr Amer 124 mL/min (>60); Estimated Creatinine Clearance 110.97 ml/min; Glucose 135 mg/dL (74-106); Potassium 5.4 mmol/L (3.5-5.1); Sodium Level 140 mmol/L (136-145)
[2019-02-08] MEDS: Ipratropium/Albuterol Sulfate 3 ML AMPUL.NEB INHALATION ×3 (06:51→18:37)
--- NOTE | 2019-02-08 07:44 | PCM.PROGNOTE ---
Patient Problems: Active and Suspected Problems (Last Updated 02/06/19 @ 19:46 by James Mancia MD) Acute hypoxemic respiratory failure (Acute) Bilateral lower extremity edema (Acute) Subjective: Chief complaint: Follow-up after admission for acute hypoxic respiratory failure secondary to acute COPD exacerbation and probable acute diastolic CHF. Patient seen and examined. No acute events overnight. He reported continued slow improvement of his symptoms, feels less short of breath and feeling better. He is still requiring high flow oxygen at 7 L. Other vital signs are stable. - Physical Exam General: Alert, Oriented x3, Cooperative, No apparent distress HEENT: Atraumatic, PERRLA, EOMI, Normocephalic Oral: Moist Mucosa, No Gingival or Mucosal Lesions/ Ulcerations Neck: Supple, No JVD, Negative Carotid Bruits, Trachea Midline, Thyroid Normal Size and Texture Lungs: Diminished, Rhonchi, Short of Breath, - - Occasional wheezes. Cardiovascular: Regular rate, Regular Rhythm, Normal S1, Normal S2, No murmurs, PMI Normal Abdomen: Bowel Sounds Present, Soft, Non Tender, Non-Distended, No Hepato-splenomegaly Extremities: No clubbing, No cyanosis, Edema - + edema, improved. Skin: No breakdown, Rash Present Lymphatic: No Cervical, Supraclavicular, or Inguinal Adenopathy Neurological: Cranial nerves II-XII grossly intact, Neuro grossly intact Psych/Mental Status: Normal Affect, Appropriate, Alert and oriented to time, place, person, mood and affect Vital Signs Temp Pulse Resp BP Pulse Ox 97.9 F 100 18 112/69 89 02/08/19 03:00 02/08/19 07:30 02/08/19 03:00 02/08/19 05:03 02/08/19 05:03 Oxygen Flow Rate (L/min) 7 Oxygen Delivery Method Nasal Cannula Weight: 222 lb 7.143 oz Body Mass Index (BMI) 30.1 Intake and Output for Last 24 Hours 02/06/19 02/07/19 02/08/19 23:59 23:59 23:59 Intake Total 120 / 120 1920 / 1920 120 / 120 Output Total 1700 / 1700 575 / 575 Balance 120 / 120 220 / 220 -455 / -455 Laboratory Tests Past 24 Hrs 05/18/19 05/19/19 05/19/19 10:56 04:55 04:55 WBC 21.8 H RBC 6.76 H Hgb 17.0 H Hct 58.4 H MCV 86.4 MCH 25.1 L MCHC 29.1 L RDW 20.0 H RDW Differential 62.0 H Plt Count 166 MPV 11.2 Immature Gran % (Auto) 0.200 Neut % (Auto) 91.3 H Lymph % (Auto) 4.4 L [place] % (Auto) 4.1 Eos % (Auto) 0.0 Baso % (Auto) 0.0 Absolute Neuts (auto) 19.9 H Absolute Lymphs (auto) 0.97 Total Counted Not Reportable Sodium 140 Potassium 5.4 H Chloride 95 L Carbon Dioxide > 45.0 H* Anion Gap TNP BUN 26 H Creatinine 0.82 Estim Creat Clear Calc 110.97 Est GFR (MDRD) Af Amer 124 Est GFR (MDRD) Non-Af 102 BUN/Creatinine Ratio 31.6 H Glucose 135 H Hemoglobin A1c 6.6 H Calcium 8.3 L Medical Necessity - Tobacco Use Smoking Status: Current every day smoker Tobacco Use: Cigarettes Assessment/Plan All Active Problems (Last Updated 02/06/19 @ 19:46 by James Mancia MD) Acute hypoxemic respiratory failure (Acute) Bilateral lower extremity edema (Acute) This is a 58 years old male patient presented to the emergency room because of shortness of breath and bilateral leg edema, found to have acute COPD exacerbation complicated by acute hypoxic respiratory failure and also found to have probable acute diastolic CHF. #1 acute COPD exacerbation: He is on IV steroids and bronchodilators. Symptoms continue to improve but still requiring high flow oxygen. Chest x-ray reviewed findings consistent with severe COPD and emphysema, no acute infiltrate or consolidation. CTA chest showed no PE or dissection, severe bullous emphysematous changes. Venous Doppler of both legs was negative for acute DVT. Plan: Wean off oxygen as tolerated, patient will probably need home oxygen although he was upset about it and he mentioned that he may lose his job if he has to use the oxygen tank. Possible DC home tomorrow morning. #2 acute hypoxic respiratory failure: Secondary to above in addition to probable acute CHF. Patient mentioned that he never been oxygen at home. He is still requiring high flow oxygen. He is on IV steroids, IV diuretics and bronchodilators. Plan as above. #3 probable acute diastolic CHF: He is on IV Lasix for diuresis. Leg edema is getting better. 2D echocardiogram revealed ejection fraction of 75%, mild LVH, mild to moderate right ventricular dilatation mild to moderate global right ventricular systolic dysfunction. Plan to continue diuresis for now. #4 mild hyperkalemia: This morning, potassium is 5.4. His carbon dioxide is more than 45 likely due to compensatory metabolic alkalosis. Kidney function is normal. Plan: P.o. Kayexalate x1, repeat potassium at 8 PM tonight, repeat BMP tomorrow morning. #5 polycythemia: Probably secondary to chronic hypoxia and exacerbated by IV diuretics. Today, hemoglobin is down to 17 g/dL. Plan to monitor for now. #6 hypertension: Blood pressure stable, continue lisinopril and Norvasc. #7 tobacco abuse: Continue NicoDerm patch. Highly recommended to quit smoking. #8 DVT prophylaxis: Subcu Lovenox. This note was generated with [employer] dictation software. It may contain incorrect words, spelling, and punctuation that were not noted in checking the note before signing. Code Visit Inpatient E&M: 61550 Subs Hosp L2
[2019-02-08] MEDS: Lisinopril 40 MG Tablet PO (08:33)
[2019-02-08] MEDS: Allopurinol 300 MG Tablet PO (08:33)
[2019-02-08] MEDS: Enoxaparin 40 MG/0.4 ML Syringe SC (08:33)
[2019-02-08] MEDS: amLODIPine 2.5 MG Tablet PO (08:33)
--- NOTE | 2019-02-08 08:51 | NURSING ---
Patients oxygen weaned down to 6 liters nasal canula, pulse ox maintained at 89% while sitting in bed, eating breakfast. attempted to wean down to 5L but pulse ox dropped to 86%. oxygen turned back up to 6L, and pulse ox came back up to 89%. will monitor.
[2019-02-08] MEDS: Sodium Polystyrene Sulfonate 15 GM/60 ML UDC 30 GM PO (09:18)
--- NOTE | 2019-02-08 09:51 | PCM.PN.PUL ---
Patient Problems: Active and Suspected Problems (Last Updated 02/06/19 @ 19:46 by James Mancia MD) Acute hypoxemic respiratory failure (Acute) Bilateral lower extremity edema (Acute) Subjective: Patient reports subjective improvement in overall condition. Patient continues to have significant lower extremity edema with stretch pain. Patient denies any current chest pain, abdominal pain, nausea or vomiting. Patient tolerating p.o. diet well. Objective: Echocardiogram shows an EF of 75% with diastolic dysfunction. Right ventricular systolic pressure estimated at 55 mmHg with mild to moderate global RV systolic dysfunction. - Physical Exam General: Alert, Oriented x3, Cooperative, No apparent distress, - - No conversational dyspnea. Appears older than stated age. HEENT: Atraumatic, PERRLA, EOMI, Normocephalic, - - No scleral icterus or injection noted. Oral: Moist Mucosa, No Gingival or Mucosal Lesions/ Ulcerations Neck: Supple, No JVD, No Nodes, Trachea Midline Lungs: No rhonchi, No wheeze, No rales, Diminished Cardiovascular: Regular rate, Regular Rhythm, Normal S1, Normal S2, Murmur - Grade 2 out of 6 systolic ejection murmur, No rub noted, No Gallop Abdomen: Bowel Sounds Present, Soft, Non Tender, Non-Distended Extremities: No cyanosis, Clubbing, Edema Skin: - - No change compared to previous Musculoskeletal: No Tenderness to Palpation of Joints or Extremities Lymphatic: No Cervical, Supraclavicular, or Inguinal Adenopathy Neurological: Cranial nerves II-XII grossly intact, Neuro grossly intact Psych/Mental Status: Alert and oriented to time, place, person, mood and affect Vital Signs Temp Pulse Resp BP Pulse Ox 36.8 C 105 H 16 110/70 89 02/08/19 08:09 02/08/19 08:09 02/08/19 08:09 02/08/19 08:09 02/08/19 08:53 Oxygen Flow Rate (L/min) 6 Oxygen Delivery Method Nasal Cannula Weight: 100.9 kg Body Mass Index (BMI) 30.1 Intake and Output for Last 24 Hours 02/06/19 02/07/19 02/08/19 23:59 23:59 23:59 Intake Total 120 / 120 1920 / 1920 120 / 120 Output Total 1700 / 1700 575 / 575 Balance 120 / 120 220 / 220 -455 / -455 Laboratory Tests Past 24 Hrs 02/07/19 02/08/19 02/08/19 10:56 04:55 04:55 WBC 21.8 H RBC 6.76 H Hgb 17.0 H Hct 58.4 H MCV 86.4 MCH 25.1 L MCHC 29.1 L RDW 20.0 H RDW Differential 62.0 H Plt Count 166 MPV 11.2 Immature Gran % (Auto) 0.200 Neut % (Auto) 91.3 H Lymph % (Auto) 4.4 L [place] % (Auto) 4.1 Eos % (Auto) 0.0 Baso % (Auto) 0.0 Absolute Neuts (auto) 19.9 H Absolute Lymphs (auto) 0.97 Total Counted Not Reportable Sodium 140 Potassium 5.4 H Chloride 95 L Carbon Dioxide > 45.0 H* Anion Gap TNP BUN 26 H Creatinine 0.82 Estim Creat Clear Calc 110.97 Est GFR (MDRD) Af Amer 124 Est GFR (MDRD) Non-Af 102 BUN/Creatinine Ratio 31.6 H Glucose 135 H Hemoglobin A1c 6.6 H Calcium 8.3 L Medical Necessity - Tobacco Use Smoking Status: Current every day smoker Tobacco Use: Cigarettes Assessment/Plan All Active Problems (Last Updated 02/06/19 @ 19:46 by James Mancia MD) Acute hypoxemic respiratory failure (Acute) Bilateral lower extremity edema (Acute) RECOMMENDATIONS: 1. Agree with empiric steroids and diuresis 2. Continue to keep saturations greater than 90% at all times 3. Walking oximetry prior to discharge 4. Outpatient complete PFT 5. Smoking cessation, nicotine patch if requested IMPRESSIONS: 1. Acute hypoxic respiratory insufficiency/cor pulmonale This is likely multifactorial. Patient does have advanced emphysematous changes noted on CT scan of the chest. Patient also has dilated pulmonary arteries, vena cava and lower extremity edema indicating probable diastolic congestive heart failure. Patient does have elevated pulmonary artery pressures, likely secondary to chronic hypoxemia. Will need to continue with supplemental oxygen. High clinical suspicion that the mental oxygen will be required on discharge. Will keep patient on current steroid therapy for now, but likely transition to prednisone to complete a 5-day burst tomorrow. 2. Probable secondary polycythemia Given clubbing on exam and hemoglobin of 18, concern for prolonged hypoxemia secondary to COPD and probable secondary pulmonary hypertension. Patient would be at increased risk for thrombosis. May consider oncology evaluation for possible phlebotomy until hypoxemia can be controlled to decrease reticulocyte response. 3. Tobacco abuse/hypertension/poor primary follow-up Complicates care, management, recovery and prognosis. Nicotine patch can be added if necessary. Continue with lisinopril and Norvasc. Will need to watch renal function closely given NATHAN inhibitor and diuretics. Code Visit Inpatient E&M: 56065 Subs Hosp L3
--- NOTE | 2019-02-08 13:58 | CPS ---
PT INCREASED BACK TO 7LPM. NURSE AWARE OF CHANGE
[2019-02-08 21:24] LABS: Potassium 4.4 mmol/L (3.5-5.1)
[2019-02-08] MEDS: Indomethacin 25 MG Capsule 50 MG PO (22:25)
[2019-02-09] VITALS (17 sets, daily range): BP systolic 97–127; BP diastolic 58–80; PULSE 99–118; RESP 17–18; TEMP 36.7–37.3; O2SAT 87–91
[2019-02-09] MEDS: 0.9% NaCl Peripheral Flush Adult/Peds IV ×4 (06:02→22:16)
[2019-02-09] MEDS: Furosemide 40 MG/4 ML Vial IV ×3 (06:02→18:44)
[2019-02-09 06:10] LABS: Absolute Neutrophil Count 17.6 X10^3/uL (2.0-7.7); Hematocrit 58.1 % (40-54); Hemoglobin 16.9 g/dl (13.0-16.5); Lymphocyte % 4.6 % (19-41); Mean Corp Hgb Conc 29.1 g/gl (32-36); Mean Corpuscular Hgb 25.8 pg (27.0-32.0); Mean Corpuscular Volume 88.6 fL (80-94); Monocyte# 0.96 X10^3/uL; Monocyte% 4.9 % (0-10); Neutrophil # 17.57 X10^3/uL (2.7-7.7); Neutrophil % 90.2 % (47-70); Platelet Count 131 K/mm3 (150-450); RBC Distribution Width CV 18.5 % (11.6-14.6); RBC Distribution Width SD 59.7 fl (35.1-43.9); Red Blood Count 6.56 M/mm3 (4.6-6.2); White Blood Count 19.5 K/mm3 (4.4-11.0)
[2019-02-09 06:11] LABS: POSITIVE DIFFERENTIAL NO
[2019-02-09 06:19] LABS: BUN 27 mg/dL (7-18); Calcium,Total 8.2 mg/dL (8.5-10.1); Carbon Dioxide > 45.0 mmol/L (21.0-32.0); Chloride 92 mmol/L (98-107); EST Glomerular Filtration Rate 106 mL/min (>60); Est Glom Filt Rate - Afr Amer 129 mL/min (>60); Estimated Creatinine Clearance 113.75 ml/min; Glucose 151 mg/dL (74-106); Potassium 4.7 mmol/L (3.5-5.1); Sodium Level 142 mmol/L (136-145)
[2019-02-09 06:21] LABS: Differential Indicated SCAN CRITERIA MET; POSITIVE COUNT YES; POSITIVE MORPHOLOGY YES
[2019-02-09 07:05] LABS: Differential Comment SCANNED; Macrocytosis 1+; Microcytosis 2+; Platelet Estimate ADEQUATE (ADEQ)
[2019-02-09] MEDS: Allopurinol 300 MG Tablet PO (09:52)
[2019-02-09] MEDS: Enoxaparin 40 MG/0.4 ML Syringe SC (09:52)
[2019-02-09] MEDS: amLODIPine 2.5 MG Tablet PO (09:53)
[2019-02-09] MEDS: Lisinopril 40 MG Tablet PO (09:53)
--- NOTE | 2019-02-09 11:26 | PCM.PN.PUL ---
Patient Problems: Active and Suspected Problems (Last Updated 02/06/19 @ 19:46 by James Mancia MD) Acute hypoxemic respiratory failure (Acute) Bilateral lower extremity edema (Acute) Subjective: The patient was seen and examined at the bedside this morning. Events from the last 24 hours have been reviewed. The patient is currently afebrile, hemodynamically stable and maintaining appropriate oxygen saturations on 6 L/min via nasal cannula. Although the patient reports subjective improvement in his breathing quality, he does continue to require a significant amount of supplemental oxygen. The patient states that he quit smoking completely 3 days ago. While he is agreeable to seeing a railway signalling engineer, he reports that it would need to be one in [place] as that is where he currently resides. 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 Objective: The patient's most recent lab work, culture data and imaging studies have all been personally reviewed. Echocardiogram shows an EF of 75% with diastolic dysfunction. Right ventricular systolic pressure estimated at 55 mmHg with mild to moderate global RV systolic dysfunction. - Physical Exam General: Alert, Cooperative, No apparent distress HEENT: Atraumatic, PERRLA, Normocephalic Oral: No Gingival or Mucosal Lesions/ Ulcerations Neck: Supple, No Nodes, Trachea Midline Lungs: - - Globally diminished air movement bilaterally with prolonged expiratory phase Cardiovascular: Regular rate, Regular Rhythm, Normal S1, Normal S2, Murmur Abdomen: Bowel Sounds Present, Soft, Non Tender Extremities: No cyanosis, Clubbing, Edema Skin: No breakdown Musculoskeletal: No Muscle Wasting Lymphatic: No Cervical, Supraclavicular, or Inguinal Adenopathy Neurological: Neuro grossly intact Psych/Mental Status: Normal Affect, Appropriate Vital Signs Temp Pulse Resp BP Pulse Ox 98.3 F 109 H 18 111/73 90 02/09/19 09:20 02/09/19 11:02 02/09/19 09:20 02/09/19 09:20 02/09/19 09:20 Oxygen Flow Rate (L/min) 6 Oxygen Delivery Method Nasal Cannula Weight: 213 lb 2.992 oz Body Mass Index (BMI) 30.1 Intake and Output for Last 24 Hours 02/07/19 02/08/19 02/09/19 23:59 23:59 23:59 Intake Total 1920 / 1920 2240 / 2240 Output Total 1700 / 1700 4875 / 4875 700 / 700 Balance 220 / 220 -2635 / -2635 -700 / -700 Laboratory Tests Past 24 Hrs 02/08/19 02/09/19 02/09/19 20:20 05:35 05:35 WBC 19.5 H RBC 6.56 H Hgb 16.9 H Hct 58.1 H MCV 88.6 MCH 25.8 L MCHC 29.1 L RDW 18.5 H RDW Differential 59.7 H Plt Count 131 L Immature Gran % (Auto) 0.300 Neut % (Auto) 90.2 H Lymph % (Auto) 4.6 L [place] % (Auto) 4.9 Eos % (Auto) 0.0 Baso % (Auto) 0.0 Absolute Neuts (auto) 17.6 H Absolute Lymphs (auto) 0.90 Total Counted Not Reportable Differential Comment SCANNED Platelet Estimate ADEQUATE Microcytosis 2+ Macrocytosis 1+ Sodium 142 Potassium 4.4 4.7 Chloride 92 L Carbon Dioxide > 45.0 H* Anion Gap TNP BUN 27 H Creatinine 0.80 Estim Creat Clear Calc 113.75 Est GFR (MDRD) Af Amer 129 Est GFR (MDRD) Non-Af 106 BUN/Creatinine Ratio 34.0 H Glucose 151 H Calcium 8.2 L Clinical Impression(s) from Imaging Studies Chest X-Ray 02/06/19 17:35 IMPRESSION: Severe changes of COPD with marked emphysema of the upper lobes and diffuse interstitial changes of the mid and lower lung zones which are probably mostly chronic in nature. Occasional small geometric confluent opacity likely to be fibrosis or atelectasis. Negative for a major area of consolidation, pleural effusion or cardiomegaly. No prior exams available for comparison. Electronically Signed: Ligia Alvarez MD at 18:04 EDT , Service support , Chest CTA 02/06/19 19:06 IMPRESSION: Grossly negative for pulmonary embolus. Somewhat suboptimal for small peripheral pulmonary emboli secondary to flow artifact as the bolus is diffuse on the pulmonary and systemic side. Mild atherosclerotic changes of the thoracic aorta without aneurysm or dissection. Normal cardiac size with coronary calcifications. Dilated pulmonary arteries suggesting pulmonary artery hypertension. Severe bullous emphysematous changes with the most severe changes in the left upper lobe. Posterior lower lobe consolidation and volume loss, right greater than left. Pneumonic infiltrates not excludable. Minimal right pleural effusion. Shoddy hilar and mediastinal lymph nodes. Generalized anasarca with a distended inferior vena cava. Electronically Signed: Ligia Alvarez MD at 20:54 EDT , Service support , Medical Necessity - Tobacco Use Smoking Status: Current every day smoker Tobacco Use: Cigarettes Assessment/Plan All Active Problems (Last Updated 02/06/19 @ 19:46 by James Mancia MD) Acute hypoxemic respiratory failure (Acute) Bilateral lower extremity edema (Acute) RECOMMENDATIONS: 1. Continue steroids and diuretic therapy. 2. Continue to keep saturations greater than 88% at all times 3. Walking oximetry prior to discharge 4. Outpatient complete PFT 5. Smoking cessation, nicotine patch if requested IMPRESSIONS: 1. Acute hypoxic respiratory insufficiency/cor pulmonale This is likely multifactorial. Patient does have advanced emphysematous changes noted on CT scan of the chest. Patient also has dilated pulmonary arteries, vena cava and lower extremity edema indicating probable diastolic congestive heart failure. Patient does have elevated pulmonary artery pressures, likely secondary to chronic hypoxemia. Will need to continue with supplemental oxygen. High clinical suspicion that the supplemental oxygen will be required on discharge. Will keep patient on current steroid therapy for now, but likely transition to prednisone to complete a 5-day burst, beginning tomorrow. The patient will need to establish care with a railway signalling engineer that is local to him in [place]. 2. Probable secondary polycythemia Given clubbing on exam and hemoglobin of 18, concern for prolonged hypoxemia secondary to COPD and probable secondary pulmonary hypertension. 3. Tobacco abuse/hypertension/poor primary follow-up Complicates care, management, recovery and prognosis. Nicotine patch can be added if necessary. Continue with lisinopril and Norvasc. Will need to watch renal function closely given NATHAN inhibitor and diuretics. This note was generated with [employer] software. It may contain incorrect words, spelling, and punctuation that were not noted in checking the note before signing. Code Visit Inpatient E&M: 81551 Subs Hosp L2
--- NOTE | 2019-02-09 12:04 | PCM.PN.HOSP ---
Patient Problems: Active and Suspected Problems (Last Updated 02/06/19 @ 19:46 by James Mancia MD) Acute hypoxemic respiratory failure (Acute) Bilateral lower extremity edema (Acute) Vitals/I&O's: Vital Signs Temp Pulse Resp BP Pulse Ox 98.3 F 109 H 18 111/73 90 02/09/19 09:20 02/09/19 11:02 02/09/19 09:20 02/09/19 09:20 02/09/19 09:20 Oxygen Flow Rate (L/min) 6 Oxygen Delivery Method Nasal Cannula Weight: 96.7 kg Body Mass Index (BMI) 30.1 Intake and Output for Last 24 Hours 02/07/19 02/08/19 02/09/19 23:59 23:59 23:59 Intake Total 1920 / 1920 2240 / 2240 Output Total 1700 / 1700 4875 / 4875 700 / 700 Balance 220 / 220 -2635 / -2635 -700 / -700 Laboratory Results 02/08/19 20:20: Potassium 4.4 02/09/19 05:35: WBC 19.5 H, RBC 6.56 H, Hgb 16.9 H, Hct 58.1 H, MCV 88.6, MCH 25.8 L, MCHC 29.1 L, RDW 18.5 H, RDW Differential 59.7 H, Plt Count 131 L, Immature Gran % (Auto) 0.300, Neut % (Auto) 90.2 H, Lymph % (Auto) 4.6 L, [place] % (Auto) 4.9, Eos % (Auto) 0.0, Baso % (Auto) 0.0, Absolute Neuts (auto) 17.6 H, Absolute Lymphs (auto) 0.90, Total Counted Not Reportable, Differential Comment SCANNED, Platelet Estimate ADEQUATE, Microcytosis 2+, Macrocytosis 1+ 02/09/19 05:35: Sodium 142, Potassium 4.7, Chloride 92 L, Carbon Dioxide > 45.0 H*, Anion Gap TNP, BUN 27 H, Creatinine 0.80, Estim Creat Clear Calc 113.75, Est GFR (MDRD) Af Amer 129, Est GFR (MDRD) Non-Af 106, BUN/Creatinine Ratio 34.0 H, Glucose 151 H, Calcium 8.2 L Current Medications Acetaminophen (Tylenol) 650 mg PO Q6H PRN PRN PRN Reason: Mild Pain (1-3)/Temp > 100.7 F Albuterol Sulfate (Ventolin Aerosols) 2.5 mg INHALATION Q2H PRN PRN PRN Reason: Shortness of Breath/Wheezing Albuterol/Ipratropium (Duoneb) 3 ml INHALATION Q6HWA.RT [facility] Last Admin: 02/09/19 06:40 Dose: Not Given [facility] Last Admin: 02/09/19 09:52 Dose: 300 mg Amlodipine Besylate (Norvasc) 2.5 mg PO DAILY [facility] Last Admin: 02/09/19 09:53 Dose: 2.5 mg Dextrose (D50w Syringe) 0 gm IV X1 PRN; Protocol PRN Reason: Hypoglycemia Enoxaparin Sodium (Lovenox) 40 mg SC DAILY@1000 [facility] Last Admin: 02/09/19 09:52 Dose: 40 mg Furosemide (Lasix) 40 mg IV 0600,1200,1800 [facility] Glucagon () 1 mg IM .X1 PRN PRN Reason: Hypoglycemia Indomethacin (Indocin) 50 mg PO BID PRN PRN Reason: PAIN Last Admin: 02/08/19 22:25 Dose: 50 mg Lisinopril (Zestril) 40 mg PO DAILY [facility] Last Admin: 02/09/19 09:53 Dose: 40 mg Melatonin (Melatonin) 3 mg PO QHS PRN PRN PRN Reason: INSOMNIA Methylprednisolone (Solu-Medrol) 40 mg IV Q8 [facility] Last Admin: 02/09/19 06:02 Dose: 40 mg Nicotine (Nicoderm Cq (Pbkc)) 21 mg TRANSDERM. DAILY [facility] Last Admin: 02/09/19 09:53 Dose: 21 mg Ondansetron HCl (Zofran) 4 mg IV Q8H PRN PRN PRN Reason: NAUSEA/VOMITING Sodium Chloride () 5 - 15 ml IV UD PRN PRN Reason: SALINE FLUSH Last Admin: 02/09/19 06:02 Dose: 15 ml Medical Necessity - Tobacco Use Smoking Status: Current every day smoker Tobacco Use: Cigarettes Assessment/Plan All Active Problems (Last Updated 02/06/19 @ 19:46 by James Mancia MD) Acute hypoxemic respiratory failure (Acute) Bilateral lower extremity edema (Acute)
--- NOTE | 2019-02-09 12:04 | PCM.PN.HOSP ---
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 An assessment of COPD with acute exacerbation and acute diastolic congestive heart failure made admitted to a monitored bed for further management Objective: GENERAL: cooperative dyspneic at rest HEENT: Atraumatic; moist oral mucosa EYES; Anicteric, Normal Conjunctiva NECK; supple, normal thyroid, RESPIRATORY: Diminished to auscultation bilaterally, CARDIOVASCULAR: Regular S1 S2, GI: soft, non-tender, normoactive bowel sounds, : No Renal angle tenderness; EXTREMITIES: No edema, no clubbing, MUSCULOSKELETAL: No Joint Tenderness; NEURO: Awake; no lateralizing signs. SKIN: Facial plethora PSYCH; Normal affect Vitals/I&O's: Vital Signs Temp Pulse Resp BP Pulse Ox 98.3 F 109 H 18 111/73 90 02/09/19 09:20 02/09/19 11:02 02/09/19 09:20 02/09/19 09:20 02/09/19 09:20 Oxygen Flow Rate (L/min) 6 Oxygen Delivery Method Nasal Cannula Weight: 96.7 kg Body Mass Index (BMI) 30.1 Intake and Output for Last 24 Hours 02/07/19 02/08/19 02/09/19 23:59 23:59 23:59 Intake Total 1920 / 1920 2240 / 2240 Output Total 1700 / 1700 4875 / 4875 700 / 700 Balance 220 / 220 -2635 / -2635 -700 / -700 Laboratory Results 02/08/19 20:20: Potassium 4.4 02/09/19 05:35: WBC 19.5 H, RBC 6.56 H, Hgb 16.9 H, Hct 58.1 H, MCV 88.6, MCH 25.8 L, MCHC 29.1 L, RDW 18.5 H, RDW Differential 59.7 H, Plt Count 131 L, Immature Gran % (Auto) 0.300, Neut % (Auto) 90.2 H, Lymph % (Auto) 4.6 L, [place] % (Auto) 4.9, Eos % (Auto) 0.0, Baso % (Auto) 0.0, Absolute Neuts (auto) 17.6 H, Absolute Lymphs (auto) 0.90, Total Counted Not Reportable, Differential Comment SCANNED, Platelet Estimate ADEQUATE, Microcytosis 2+, Macrocytosis 1+ 02/09/19 05:35: Sodium 142, Potassium 4.7, Chloride 92 L, Carbon Dioxide > 45.0 H*, Anion Gap TNP, BUN 27 H, Creatinine 0.80, Estim Creat Clear Calc 113.75, Est GFR (MDRD) Af Amer 129, Est GFR (MDRD) Non-Af 106, BUN/Creatinine Ratio 34.0 H, Glucose 151 H, Calcium 8.2 L Current Medications Acetaminophen (Tylenol) 650 mg PO Q6H PRN PRN PRN Reason: Mild Pain (1-3)/Temp > 100.7 F Albuterol Sulfate (Ventolin Aerosols) 2.5 mg INHALATION Q2H PRN PRN PRN Reason: Shortness of Breath/Wheezing Albuterol/Ipratropium (Duoneb) 3 ml INHALATION Q6HWA.RT [facility] Last Admin: 02/09/19 06:40 Dose: Not Given Allopurinol (Zyloprim) 300 mg PO DAILYCM [facility] Last Admin: 02/09/19 09:52 Dose: 300 mg Amlodipine Besylate (Norvasc) 2.5 mg PO DAILY [facility] Last Admin: 02/09/19 09:53 Dose: 2.5 mg Dextrose (D50w Syringe) 0 gm IV X1 PRN; Protocol PRN Reason: Hypoglycemia Enoxaparin Sodium (Lovenox) 40 mg SC DAILY@1000 [facility] Last Admin: 02/09/19 09:52 Dose: 40 mg Furosemide (Lasix) 40 mg IV 0600,1200,1800 [facility] Glucagon () 1 mg IM .X1 PRN PRN Reason: Hypoglycemia Indomethacin (Indocin) 50 mg PO BID PRN PRN Reason: PAIN Last Admin: 02/08/19 22:25 Dose: 50 mg Lisinopril (Zestril) 40 mg PO DAILY [facility] Last Admin: 02/09/19 09:53 Dose: 40 mg Melatonin (Melatonin) 3 mg PO QHS PRN PRN PRN Reason: INSOMNIA Methylprednisolone (Solu-Medrol) 40 mg IV Q8 [facility] Last Admin: 02/09/19 06:02 Dose: 40 mg Nicotine (Nicoderm Cq (Pbkc)) 21 mg TRANSDERM. 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 An assessment of COPD with acute exacerbation and acute diastolic congestive heart failure made admitted to a monitored bed for further management 1. Acute hypoxic and hypercapnic respiratory failure secondary to COPD with exacerbation as well as acute congestive heart failure. Patient still remains significantly hypoxic despite optimal treatment. Patient is apparently a heavy truck mechanic had a discussion with him regarding the fact that he will probably be dependent on oxygen he stated that he may lose his job if he has to wear oxygen. Recommended to patient to speak with his employer's to change jobs and moved to the office. 2. Acute COPD exacerbation patient was managed with aerosol treatment, systemic steroids and supplemental oxygen. 3. Acute congestive heart failure with preserved ejection fraction echo obtained demonstrated EF of 75% with mild left ventricular hypertrophy and mild to moderate right ventricular dilatation. Patient is on Lasix 4. Polycythemia secondary to chronic hypoxia from patient severe COPD and continued smoking 5. Hyperkalemia corrected per protocol 6. Hypertension-blood pressure controlled, home medications continued with dose adjustment as needed 7. Tobacco dependence counseled on cessation, offered nicotine patch for tobacco cravings 8. DVT prophylaxis Lovenox Active Medications Acetaminophen (Tylenol) 650 mg PO Q6H PRN PRN PRN Reason: Mild Pain (1-3)/Temp > 100.7 F Albuterol Sulfate (Ventolin Aerosols) 2.5 mg INHALATION Q2H PRN PRN PRN Reason: Shortness of Breath/Wheezing Albuterol/Ipratropium (Duoneb) 3 ml INHALATION Q6HWA.RT [facility] Last Admin: 02/09/19 06:40 Dose: Not Given Allopurinol (Zyloprim) 300 mg PO DAILYCM [facility] Last Admin: 02/09/19 09:52 Dose: 300 mg Amlodipine Besylate (Norvasc) 2.5 mg PO DAILY [facility] Last Admin: 02/09/19 09:53 Dose: 2.5 mg Dextrose (D50w Syringe) 0 gm IV X1 PRN; Protocol PRN Reason: Hypoglycemia Enoxaparin Sodium (Lovenox) 40 mg SC DAILY@1000 [facility] Last Admin: 02/09/19 09:52 Dose: 40 mg Furosemide (Lasix) 40 mg IV 0600,1200,1800 [facility] Glucagon () 1 mg IM .X1 PRN PRN Reason: Hypoglycemia Indomethacin (Indocin) 50 mg PO BID PRN PRN Reason: PAIN Last Admin: 02/08/19 22:25 Dose: 50 mg Lisinopril (Zestril) 40 mg PO DAILY [facility] Last Admin: 02/09/19 09:53 Dose: 40 mg Melatonin (Melatonin) 3 mg PO QHS PRN PRN PRN Reason: INSOMNIA Methylprednisolone (Solu-Medrol) 40 mg IV Q8 [facility] Last Admin: 02/09/19 06:02 Dose: 40 mg Nicotine (Nicoderm Cq (Pbkc)) 21 mg TRANSDERM. DAILY [facility] Last Admin: 02/09/19 09:53 Dose: 21 mg Ondansetron HCl (Zofran) 4 mg IV Q8H PRN PRN PRN Reason: NAUSEA/VOMITING Sodium Chloride () 5 - 15 ml IV UD PRN PRN Reason: SALINE FLUSH Last Admin: 02/09/19 06:02 Dose: 15 ml Clinical Impression(s) from Imaging Studies Chest X-Ray 02/06/19 17:35 IMPRESSION: Severe changes of COPD with marked emphysema of the upper lobes and diffuse interstitial changes of the mid and lower lung zones which are probably mostly chronic in nature. Occasional small geometric confluent opacity likely to be fibrosis or atelectasis. Negative for a major area of consolidation, pleural effusion or cardiomegaly. No prior exams available for comparison. Electronically Signed: Ligia Alvarez MD at 18:04 EDT , Service support , Chest CTA 02/06/19 19:06 IMPRESSION: Grossly negative for pulmonary embolus. Somewhat suboptimal for small peripheral pulmonary emboli secondary to flow artifact as the bolus is diffuse on the pulmonary and systemic side. Mild atherosclerotic changes of the thoracic aorta without aneurysm or dissection. Normal cardiac size with coronary calcifications. Dilated pulmonary arteries suggesting pulmonary artery hypertension. Severe bullous emphysematous changes with the most severe changes in the left upper lobe. Posterior lower lobe consolidation and volume loss, right greater than left. Pneumonic infiltrates not excludable. Minimal right pleural effusion. Shoddy hilar and mediastinal lymph nodes. Generalized anasarca with a distended inferior vena cava. Electronically Signed: Ligia Alvarez MD at 20:54 EDT , Service support , Code Visit Inpatient E&M: 74225 Subs Hosp L2
--- NOTE | 2019-02-09 12:10 | PN_ITS ---
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 An assessment of COPD with acute exacerbation and acute diastolic congestive heart failure made admitted to a monitored bed for further management Objective: GENERAL: cooperative dyspneic at rest HEENT: Atraumatic; moist oral mucosa EYES; Anicteric, Normal Conjunctiva NECK; supple, normal thyroid, RESPIRATORY: Diminished to auscultation bilaterally, CARDIOVASCULAR: Regular S1 S2, GI: soft, non-tender, normoactive bowel sounds, : No Renal angle tenderness; EXTREMITIES: No edema, no clubbing, MUSCULOSKELETAL: No Joint Tenderness; NEURO: Awake; no lateralizing signs. SKIN: Facial plethora PSYCH; Normal affect Vitals/I&O's: Vital Signs Temp Pulse Resp BP Pulse Ox 98.3 F 109 H 18 111/73 90 02/09/19 09:20 02/09/19 11:02 02/09/19 09:20 02/09/19 09:20 02/09/19 09:20 Oxygen Flow Rate (L/min) 6 Oxygen Delivery Method Nasal Cannula Weight: 96.7 kg Body Mass Index (BMI) 30.1 Intake and Output for Last 24 Hours 02/07/19 02/08/19 02/09/19 23:59 23:59 23:59 Intake Total 1920 / 1920 2240 / 2240 Output Total 1700 / 1700 4875 / 4875 700 / 700 Balance 220 / 220 -2635 / -2635 -700 / -700 Laboratory Results 02/08/19 20:20: Potassium 4.4 02/09/19 05:35: WBC 19.5 H, RBC 6.56 H, Hgb 16.9 H, Hct 58.1 H, MCV 88.6, MCH 25.8 L, MCHC 29.1 L, RDW 18.5 H, RDW Differential 59.7 H, Plt Count 131 L, Immature Gran % (Auto) 0.300, Neut % (Auto) 90.2 H, Lymph % (Auto) 4.6 L, Harmon % (Auto) 4.9, Eos % (Auto) 0.0, Baso % (Auto) 0.0, Absolute Neuts (auto) 17.6 H, Absolute Lymphs (auto) 0.90, Total Counted Not Reportable, Differential Comment SCANNED, Platelet Estimate ADEQUATE, Microcytosis 2+, Macrocytosis 1+ 02/09/19 05:35: Sodium 142, Potassium 4.7, Chloride 92 L, Carbon Dioxide > 45.0 H*, Anion Gap TNP, BUN 27 H, Creatinine 0.80, Estim Creat Clear Calc 113.75, Est GFR (MDRD) Af Amer 129, Est GFR (MDRD) Non-Af 106, BUN/Creatinine Ratio 34.0 H, Glucose 151 H, Calcium 8.2 L Current Medications Acetaminophen (Tylenol) 650 mg PO Q6H PRN PRN PRN Reason: Mild Pain (1-3)/Temp > 100.7 F Albuterol Sulfate (Ventolin Aerosols) 2.5 mg INHALATION Q2H PRN PRN PRN Reason: Shortness of Breath/Wheezing Albuterol/Ipratropium (Duoneb) 3 ml INHALATION Q6HWA.RT [facility] Last Admin: 02/09/19 06:40 Dose: Not Given Allopurinol (Zyloprim) 300 mg PO DAILYCM [facility] Last Admin: 02/09/19 09:52 Dose: 300 mg Amlodipine Besylate (Norvasc) 2.5 mg PO DAILY [facility] Last Admin: 02/09/19 09:53 Dose: 2.5 mg Dextrose (D50w Syringe) 0 gm IV X1 PRN; Protocol PRN Reason: Hypoglycemia Enoxaparin Sodium (Lovenox) 40 mg SC DAILY@1000 [facility] Last Admin: 02/09/19 09:52 Dose: 40 mg Furosemide (Lasix) 40 mg IV 0600,1200,1800 [facility] Glucagon () 1 mg IM .X1 PRN PRN Reason: Hypoglycemia Indomethacin (Indocin) 50 mg PO BID PRN PRN Reason: PAIN Last Admin: 02/08/19 22:25 Dose: 50 mg Lisinopril (Zestril) 40 mg PO DAILY [facility] Last Admin: 02/09/19 09:53 Dose: 40 mg Melatonin (Melatonin) 3 mg PO QHS PRN PRN PRN Reason: INSOMNIA Methylprednisolone (Solu-Medrol) 40 mg IV Q8 [facility] Last Admin: 02/09/19 06:02 Dose: 40 mg Nicotine (Nicoderm Cq (Pbkc)) 21 mg TRANSDERM. 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 An assessment of COPD with acute exacerbation and acute diastolic congestive heart failure made admitted to a monitored bed for further management 1. Acute hypoxic and hypercapnic respiratory failure secondary to COPD with exacerbation as well as acute congestive heart failure. Patient still remains significantly hypoxic despite optimal treatment. Patient is apparently a truck loader and unloader had a discussion with him regarding the fact that he will probably be dependent on oxygen he stated that he may lose his job if he has to wear oxygen. Recommended to patient to speak with his employer's to change jobs and moved to the office. 2. Acute COPD exacerbation patient was managed with aerosol treatment, systemic steroids and supplemental oxygen. 3. Acute congestive heart failure with preserved ejection fraction echo obtained demonstrated EF of 75% with mild left ventricular hypertrophy and mild to moderate right ventricular dilatation. Patient is on Lasix 4. Polycythemia secondary to chronic hypoxia from patient severe COPD and continued smoking 5. Hyperkalemia corrected per protocol 6. Hypertension-blood pressure controlled, home medications continued with dose adjustment as needed 7. Tobacco dependence counseled on cessation, offered nicotine patch for tobacco cravings 8. DVT prophylaxis Lovenox Active Medications Acetaminophen (Tylenol) 650 mg PO Q6H PRN PRN PRN Reason: Mild Pain (1-3)/Temp > 100.7 F Albuterol Sulfate (Ventolin Aerosols) 2.5 mg INHALATION Q2H PRN PRN PRN Reason: Shortness of Breath/Wheezing Albuterol/Ipratropium (Duoneb) 3 ml INHALATION Q6HWA.RT [facility] Last Admin: 02/09/19 06:40 Dose: Not Given Allopurinol (Zyloprim) 300 mg PO DAILYCM [facility] Last Admin: 02/09/19 09:52 Dose: 300 mg Amlodipine Besylate (Norvasc) 2.5 mg PO DAILY [facility] Last Admin: 02/09/19 09:53 Dose: 2.5 mg Dextrose (D50w Syringe) 0 gm IV X1 PRN; Protocol PRN Reason: Hypoglycemia Enoxaparin Sodium (Lovenox) 40 mg SC DAILY@1000 [facility] Last Admin: 02/09/19 09:52 Dose: 40 mg Furosemide (Lasix) 40 mg IV 0600,1200,1800 [facility] Glucagon () 1 mg IM .X1 PRN PRN Reason: Hypoglycemia Indomethacin (Indocin) 50 mg PO BID PRN PRN Reason: PAIN Last Admin: 02/08/19 22:25 Dose: 50 mg Lisinopril (Zestril) 40 mg PO DAILY [facility] Last Admin: 02/09/19 09:53 Dose: 40 mg Melatonin (Melatonin) 3 mg PO QHS PRN PRN PRN Reason: INSOMNIA Methylprednisolone (Solu-Medrol) 40 mg IV Q8 [facility] Last Admin: 02/09/19 06:02 Dose: 40 mg Nicotine (Nicoderm Cq (Pbkc)) 21 mg TRANSDERM. DAILY [facility] Last Admin: 02/09/19 09:53 Dose: 21 mg Ondansetron HCl (Zofran) 4 mg IV Q8H PRN PRN PRN Reason: NAUSEA/VOMITING Sodium Chloride () 5 - 15 ml IV UD PRN PRN Reason: SALINE FLUSH Last Admin: 02/09/19 06:02 Dose: 15 ml Clinical Impression(s) from Imaging Studies Chest X-Ray 02/06/19 17:35 IMPRESSION: Severe changes of COPD with marked emphysema of the upper lobes and diffuse interstitial changes of the mid and lower lung zones which are probably mostly chronic in nature. Occasional small geometric confluent opacity likely to be fibrosis or atelectasis. Negative for a major area of consolidation, pleural effusion or cardiomegaly. No prior exams available for comparison. Electronically Signed: Ligia Alvarez MD at 18:04 EDT , Service support , Chest CTA 02/06/19 19:06 IMPRESSION: Grossly negative for pulmonary embolus. Somewhat suboptimal for small peripheral pulmonary emboli secondary to flow artifact as the bolus is diffuse on the pulmonary and systemic side. Mild atherosclerotic changes of the thoracic aorta without aneurysm or dissection. Normal cardiac size with coronary calcifications. Dilated pulmonary arteries suggesting pulmonary artery hypertension. Severe bullous emphysematous changes with the most severe changes in the left upper lobe. Posterior lower lobe consolidation and volume loss, right greater than left. Pneumonic infiltrates not excludable. Minimal right pleural effusion. Shoddy hilar and mediastinal lymph nodes. Generalized anasarca with a distended inferior vena cava. Electronically Signed: Ligia Alvarez MD at 20:54 EDT , Service support , Code Visit Inpatient E&M: 49020 Subs Hosp L2
[2019-02-09] MEDS: Ipratropium/Albuterol Sulfate 3 ML AMPUL.NEB INHALATION ×2 (13:05→19:16)
--- NOTE | 2019-02-09 13:35 | CPS ---
ABG ATTEMPTED AND VENOUS SAMPLE OBTAINED. BLOOD GAS RESULTS TO DR. SALCEDO. NO NEW ORDERS RECEIVED AT THIS TIME.
[2019-02-09 13:46] LABS: O2 Delivery Device Nasal Can; SITE R Radial; Time Given 1325; VBG BASE EXCESS 26 mmol/L (-1.0-3.5); VBG Bicarbonate 52 mmol/L (22-26); VBG PO2 34 mmHg (25-40); VBG SO2 58 % (50-70); VBG pCO2 90.6 mmHg (41-51); VBG pH 7.36 (7.32-7.42)
[2019-02-09 14:36] LABS: Blood Gas Specimen Type VEN
[2019-02-09 14:37] LABS: VBG Oxygen Content > 50 mmol/L (23-33)
[2019-02-09] MEDS: Indomethacin 25 MG Capsule 50 MG PO (23:24)
[2019-02-10] VITALS (8 sets, daily range): BP systolic 121–134; BP diastolic 75–80; PULSE 98–112; RESP 16–20; TEMP 36.4–36.6; O2SAT 80–90
[2019-02-10] MEDS: 0.9% NaCl Peripheral Flush Adult/Peds IV ×3 (05:51→05:54)
[2019-02-10] MEDS: Furosemide 40 MG/4 ML Vial IV ×2 (05:54→12:12)
[2019-02-10] MEDS: Ipratropium/Albuterol Sulfate 3 ML AMPUL.NEB INHALATION ×2 (06:52→13:11)
--- NOTE | 2019-02-10 09:05 | DCINST_ITS ---
- Discharge Diagnoses Current Active Problems: Current Active and Chronic Problems (Last Updated 02/06/19 @ 19:46 by James Mancia MD) Acute hypoxemic respiratory failure (Acute) Bilateral lower extremity edema (Acute) COPD (chronic obstructive pulmonary disease) (Chronic) You will use the following diet at home:: No restrictions Return to work on:: 02/09/19 Call your doctor if you observe: Shortness of breath, Fainting spells, Swelling in the ankles, Chest pain Allergies/Adverse Reactions: Allergies No Known Allergies Allergy (Verified 02/06/19 16:37) Medications to take at Discharge Allopurinol 300 mg PO DAILY 02/06/19 Amlodipine [Norvasc] 2.5 mg PO DAILY 02/06/19 Indomethacin [Indocin] 50 mg PO BID PRN 02/06/19 Lisinopril 40 mg PO DAILY 02/06/19 Albuterol IH (ProAir) [Proair Hfa] 2 puff INHALATION Q4H PRN PRN #1 inhaler 02/10/19 Budesonide/Formoterol 160/4.5 [Symbicort 160/4.5 Mcg Inhaler (SP)] 2 puff INHALATION BID #1 inhaler 02/10/19 Furosemide [Lasix] 40 mg PO DAILY #30 tab 02/10/19 Guaifenesin [Mucinex] 1,200 mg PO BID #14 tbmp.12hr 02/10/19 Prednisone 10 mg PO UD #30 tab 02/10/19 The following prescriptions were given: Albuterol IH (ProAir) [Proair Hfa] 2 puff INHALATION Q4H PRN PRN #1 inhaler PRN Reason: Dyspnea/Wheezing/Sob Budesonide/Formoterol 160/4.5 [Symbicort 160/4.5 Mcg Inhaler (SP)] 2 puff INHALATION BID #1 inhaler Furosemide [Lasix] 40 mg PO DAILY #30 tab Guaifenesin [Mucinex] 1,200 mg PO BID #14 tbmp.12hr Prednisone 10 mg PO UD #30 tab Primary Care Physician: Care Physician,No Primary [Primary Care Provider] - Please follow up with your Primary Care Physician in: in 3-5 days in [place] Test Results: Test results from this visit will be discussed in further detail at your follow- up appointment, if applicable. Proposed Discharge Date: 02/10/19
--- NOTE | 2019-02-10 09:06 | PCM.WORK.EX ---
Work/School Excuse Please excuse this person from:: Work From: 02/06/19 through: 02/16/19 Restrictions: Other - PATIENT NEEDS TO WEAR OXYGEN 2-3 L CONTINOUSLY UNTIL CLEARED BY HIS PRIMARY DR
--- NOTE | 2019-02-10 09:08 | PCM.DC.SUM ---
Discharge Date and Diagnosis - Problem List Patient Problems: Active and Suspected Problems (Last Updated 02/06/19 @ 19:46 by James Mancia MD) Acute hypoxemic respiratory failure (Acute) Bilateral lower extremity edema (Acute) Date of Admission: 02/06/19 Date of Discharge: 02/10/19 - Primary Discharge Diagnosis Active and Suspected Problems (Last Updated 02/06/19 @ 19:46 by James Mancia MD) Acute hypoxemic respiratory failure (Acute) Bilateral lower extremity edema (Acute) - Secondary Discharge Diagnosis Chronic Problems (Last Updated 02/06/19 @ 19:46 by James Mancia MD) COPD (chronic obstructive pulmonary disease) (Chronic) Hospital Course and Treatment Imaging Results: Clinical Impression(s) from Imaging Studies Chest X-Ray 02/06/19 17:35 IMPRESSION: Severe changes of COPD with marked emphysema of the upper lobes and diffuse interstitial changes of the mid and lower lung zones which are probably mostly chronic in nature. Occasional small geometric confluent opacity likely to be fibrosis or atelectasis. Negative for a major area of consolidation, pleural effusion or cardiomegaly. No prior exams available for comparison. Electronically Signed: Ligia Alvarez MD at 18:04 EDT , Service support , Chest CTA 02/06/19 19:06 IMPRESSION: Grossly negative for pulmonary embolus. Somewhat suboptimal for small peripheral pulmonary emboli secondary to flow artifact as the bolus is diffuse on the pulmonary and systemic side. Mild atherosclerotic changes of the thoracic aorta without aneurysm or dissection. Normal cardiac size with coronary calcifications. Dilated pulmonary arteries suggesting pulmonary artery hypertension. Severe bullous emphysematous changes with the most severe changes in the left upper lobe. Posterior lower lobe consolidation and volume loss, right greater than left. Pneumonic infiltrates not excludable. Minimal right pleural effusion. Shoddy hilar and mediastinal lymph nodes. Generalized anasarca with a distended inferior vena cava. 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 An assessment of COPD with acute exacerbation and acute diastolic congestive heart failure made admitted to a monitored bed for further management 1. Acute hypoxic and hypercapnic respiratory failure secondary to COPD with exacerbation as well as acute congestive heart failure. Patient still remains significantly hypoxic despite optimal treatment. Patient is apparently a lift truck mechanic had a discussion with him regarding the fact that he will probably be dependent on oxygen he stated that he may lose his job if he has to wear oxygen. Recommended to patient to speak with his employer's to change jobs and moved to the office. The patient was assessed for home oxygen prior to discharge which she did qualify. He was advised to wear his oxygen at all times. 2. Acute COPD exacerbation patient was managed with aerosol treatment, systemic steroids and supplemental oxygen. Prescription was written for Symbicort amount albuterol HFA as needed, tapering dose of prednisone and Mucinex on discharge 3. Acute congestive heart failure with preserved ejection fraction echo obtained demonstrated EF of 75% with mild left ventricular hypertrophy and mild to moderate right ventricular dilatation. Patient managed and discharged on Lasix 4. Polycythemia secondary to chronic hypoxia from patient severe COPD and continued smoking 5. Hyperkalemia corrected per protocol 6. Hypertension-blood pressure controlled, home medications continued with dose adjustment as needed 7. Tobacco dependence counseled on cessation, offered nicotine patch for tobacco cravings 8. DVT prophylaxis Lovenox Patient Problems: Active and Suspected Problems (Last Updated 02/06/19 @ 19:46 by James Mancia MD) Acute hypoxemic respiratory failure (Acute) Bilateral lower extremity edema (Acute) Objective: GENERAL: cooperative dyspneic at rest HEENT: Atraumatic; moist oral mucosa EYES; Anicteric, Normal Conjunctiva NECK; supple, normal thyroid, RESPIRATORY: Diminished to auscultation bilaterally, CARDIOVASCULAR: Regular S1 S2, GI: soft, non-tender, normoactive bowel sounds, : No Renal angle tenderness; EXTREMITIES: No edema, no clubbing, MUSCULOSKELETAL: No Joint Tenderness; NEURO: Awake; no lateralizing signs. SKIN: Facial plethora PSYCH; Normal affect - Physical Exam Vital Signs Temp Pulse Resp BP Pulse Ox 98 F 106 H 20 H 134/76 H 86 02/10/19 04:00 02/10/19 07:31 02/10/19 06:52 02/10/19 05:49 02/10/19 06:52 Oxygen Flow Rate (L/min) 3 Oxygen Delivery Method Nasal Cannula Weight: 92.3 kg Body Mass Index (BMI) 30.1 Intake and Output for Last 24 Hours 02/08/19 02/09/19 02/10/19 23:59 23:59 23:59 Intake Total 2240 / 2240 1710 / 1710 90 / 90 Output Total 4875 / 4875 2750 / 2750 Balance -2635 / -2635 -1040 / -1040 90 / 90 Laboratory Tests Past 24 Hrs 02/09/19 13:23 Specimen Type ELNNIE Sample Site R Radial VBG pH 7.36 VBG pO2 34 VBG O2 Sat (Calc) 58 VBG O2 Content > 50 H VBG Base Excess 26 H POC Mix VBG pCO2 Pt Tmp 90.6 H* O2 Delivery Device Nasal Can Liter Flow 4.0 Blood Gas Notified Whom ICU MD Blood Gas Notified Time 1325 Discharge Diet: 8 Cup Fluid Restriciton, 2000 mg Sodium Diet Discharge Activity: Return to Normal Activity Return to work on:: 02/09/19 Call your doctor if you observe: Shortness of breath, Fainting spells, Swelling in the ankles, Chest pain Home Medications: Medications to take at Discharge Allopurinol 300 mg PO DAILY 02/06/19 Amlodipine [Norvasc] 2.5 mg PO DAILY 02/06/19 Indomethacin [Indocin] 50 mg PO BID PRN 02/06/19 Lisinopril 40 mg PO DAILY 02/06/19 Albuterol IH (ProAir) [Proair Hfa] 2 puff INHALATION Q4H PRN PRN #1 inhaler 02/10/19 Budesonide/Formoterol 160/4.5 [Symbicort 160/4.5 Mcg Inhaler (SP)] 2 puff INHALATION BID #1 inhaler 02/10/19 Furosemide [Lasix] 40 mg PO DAILY #30 tab 02/10/19 Guaifenesin [Mucinex] 1,200 mg PO BID #14 tbmp.12hr 02/10/19 Prednisone 10 mg PO UD #30 tab 02/10/19 Following Prescrptions Were Given to Patient: Albuterol IH (ProAir) [Proair Hfa] 2 puff INHALATION Q4H PRN PRN #1 inhaler PRN Reason: Dyspnea/Wheezing/Sob Budesonide/Formoterol 160/4.5 [Symbicort 160/4.5 Mcg Inhaler (SP)] 2 puff INHALATION BID #1 inhaler Furosemide [Lasix] 40 mg PO DAILY #30 tab Guaifenesin [Mucinex] 1,200 mg PO BID #14 tbmp.12hr Prednisone 10 mg PO UD #30 tab Primary Care Physician: Care Physician,No Primary [Primary Care Provider] - Please follow up with your Primary Care Physician in: in 3-5 days in [place] Disposition: Home Minutes spent on discharge:: 35 Patient Condition:: Stable Medical Necessity - Tobacco Use Smoking Status: Current every day smoker Tobacco Use: Cigarettes Meaningful Use Info Meaningful Use Diagnoses (Choose all that apply): CHF - CHF NATHAN/ARB ordered at discharge?: Yes Documented LVEF (%): 75 Code Visit Inpatient E&M: 13341 Disch Hosp
--- NOTE | 2019-02-10 09:12 | DS.PCM_ITS ---
Discharge Date and Diagnosis - Problem List Patient Problems: Active and Suspected Problems (Last Updated 02/06/19 @ 19:46 by James Mancia MD) Acute hypoxemic respiratory failure (Acute) Bilateral lower extremity edema (Acute) Date of Admission: 02/06/19 Date of Discharge: 02/10/19 - Primary Discharge Diagnosis Active and Suspected Problems (Last Updated 02/06/19 @ 19:46 by James Mancia MD) Acute hypoxemic respiratory failure (Acute) Bilateral lower extremity edema (Acute) - Secondary Discharge Diagnosis Chronic Problems (Last Updated 02/06/19 @ 19:46 by James Mancia MD) COPD (chronic obstructive pulmonary disease) (Chronic) Hospital Course and Treatment Imaging Results: Clinical Impression(s) from Imaging Studies Chest X-Ray 02/06/19 17:35 IMPRESSION: Severe changes of COPD with marked emphysema of the upper lobes and diffuse interstitial changes of the mid and lower lung zones which are probably mostly chronic in nature. Occasional small geometric confluent opacity likely to be fibrosis or atelectasis. Negative for a major area of consolidation, pleural effusion or cardiomegaly. No prior exams available for comparison. Electronically Signed: Ligia Alvarez MD at 18:04 EDT , Service support , Chest CTA 02/06/19 19:06 IMPRESSION: Grossly negative for pulmonary embolus. Somewhat suboptimal for small peripheral pulmonary emboli secondary to flow artifact as the bolus is diffuse on the pulmonary and systemic side. Mild atherosclerotic changes of the thoracic aorta without aneurysm or dissection. Normal cardiac size with coronary calcifications. Dilated pulmonary arteries suggesting pulmonary artery hypertension. Severe bullous emphysematous changes with the most severe changes in the left upper lobe. Posterior lower lobe consolidation and volume loss, right greater than left. Pneumonic infiltrates not excludable. Minimal right pleural effusion. Shoddy hilar and mediastinal lymph nodes. Generalized anasarca with a distended inferior vena cava. 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 An assessment of COPD with acute exacerbation and acute diastolic congestive heart failure made admitted to a monitored bed for further management 1. Acute hypoxic and hypercapnic respiratory failure secondary to COPD with exacerbation as well as acute congestive heart failure. Patient still remains significantly hypoxic despite optimal treatment. Patient is apparently a regional tanker truck driver had a discussion with him regarding the fact that he will probably be dependent on oxygen he stated that he may lose his job if he has to wear oxygen. Recommended to patient to speak with his employer's to change jobs and moved to the office. The patient was assessed for home oxygen prior to discharge which she did qualify. He was advised to wear his oxygen at all times. 2. Acute COPD exacerbation patient was managed with aerosol treatment, systemic steroids and supplemental oxygen. Prescription was written for Symbicort amount albuterol HFA as needed, tapering dose of prednisone and Mucinex on discharge 3. Acute congestive heart failure with preserved ejection fraction echo obtained demonstrated EF of 75% with mild left ventricular hypertrophy and mild to moderate right ventricular dilatation. Patient managed and discharged on Lasix 4. Polycythemia secondary to chronic hypoxia from patient severe COPD and continued smoking 5. Hyperkalemia corrected per protocol 6. Hypertension-blood pressure controlled, home medications continued with dose adjustment as needed 7. Tobacco dependence counseled on cessation, offered nicotine patch for tobacco cravings 8. DVT prophylaxis Lovenox Patient Problems: Active and Suspected Problems (Last Updated 02/06/19 @ 19:46 by James Mancia MD) Acute hypoxemic respiratory failure (Acute) Bilateral lower extremity edema (Acute) Objective: GENERAL: cooperative dyspneic at rest HEENT: Atraumatic; moist oral mucosa EYES; Anicteric, Normal Conjunctiva NECK; supple, normal thyroid, RESPIRATORY: Diminished to auscultation bilaterally, CARDIOVASCULAR: Regular S1 S2, GI: soft, non-tender, normoactive bowel sounds, : No Renal angle tenderness; EXTREMITIES: No edema, no clubbing, MUSCULOSKELETAL: No Joint Tenderness; NEURO: Awake; no lateralizing signs. SKIN: Facial plethora PSYCH; Normal affect - Physical Exam Vital Signs Temp Pulse Resp BP Pulse Ox 98 F 106 H 20 H 134/76 H 86 02/10/19 04:00 02/10/19 07:31 02/10/19 06:52 02/10/19 05:49 02/10/19 06:52 Oxygen Flow Rate (L/min) 3 Oxygen Delivery Method Nasal Cannula Weight: 92.3 kg Body Mass Index (BMI) 30.1 Intake and Output for Last 24 Hours 02/08/19 02/09/19 02/10/19 23:59 23:59 23:59 Intake Total 2240 / 2240 1710 / 1710 90 / 90 Output Total 4875 / 4875 2750 / 2750 Balance -2635 / -2635 -1040 / -1040 90 / 90 Laboratory Tests Past 24 Hrs 02/09/19 13:23 Specimen Type LENNIE Sample Site R Radial VBG pH 7.36 VBG pO2 34 VBG O2 Sat (Calc) 58 VBG O2 Content > 50 H VBG Base Excess 26 H POC Mix VBG pCO2 Pt Tmp 90.6 H* O2 Delivery Device Nasal Can Liter Flow 4.0 Blood Gas Notified Whom ICU MD Blood Gas Notified Time 1325 Discharge Diet: 8 Cup Fluid Restriciton, 2000 mg Sodium Diet Discharge Activity: Return to Normal Activity Return to work on:: 02/09/19 Call your doctor if you observe: Shortness of breath, Fainting spells, Swelling in the ankles, Chest pain Home Medications: Medications to take at Discharge Allopurinol 300 mg PO DAILY 02/06/19 Amlodipine [Norvasc] 2.5 mg PO DAILY 02/06/19 Indomethacin [Indocin] 50 mg PO BID PRN 02/06/19 Lisinopril 40 mg PO DAILY 02/06/19 Albuterol IH (ProAir) [Proair Hfa] 2 puff INHALATION Q4H PRN PRN #1 inhaler 02/10/19 Budesonide/Formoterol 160/4.5 [Symbicort 160/4.5 Mcg Inhaler (SP)] 2 puff INHALATION BID #1 inhaler 02/10/19 Furosemide [Lasix] 40 mg PO DAILY #30 tab 02/10/19 Guaifenesin [Mucinex] 1,200 mg PO BID #14 tbmp.12hr 02/10/19 Prednisone 10 mg PO UD #30 tab 02/10/19 Following Prescrptions Were Given to Patient: Albuterol IH (ProAir) [Proair Hfa] 2 puff INHALATION Q4H PRN PRN #1 inhaler PRN Reason: Dyspnea/Wheezing/Sob Budesonide/Formoterol 160/4.5 [Symbicort 160/4.5 Mcg Inhaler (SP)] 2 puff INHALATION BID #1 inhaler Furosemide [Lasix] 40 mg PO DAILY #30 tab Guaifenesin [Mucinex] 1,200 mg PO BID #14 tbmp.12hr Prednisone 10 mg PO UD #30 tab Primary Care Physician: Care Physician,No Primary [Primary Care Provider] - Please follow up with your Primary Care Physician in: in 3-5 days in [place] Disposition: Home Minutes spent on discharge:: 35 Patient Condition:: Stable Medical Necessity - Tobacco Use Smoking Status: Current every day smoker Tobacco Use: Cigarettes Meaningful Use Info Meaningful Use Diagnoses (Choose all that apply): CHF - CHF NATHAN/ARB ordered at discharge?: Yes Documented LVEF (%): 75 Code Visit Inpatient E&M: 28881 Disch Hosp
[2019-02-10] MEDS: Allopurinol 300 MG Tablet PO (09:59)
[2019-02-10] MEDS: Lisinopril 40 MG Tablet PO (09:59)
[2019-02-10] MEDS: Enoxaparin 40 MG/0.4 ML Syringe SC (10:00)
--- NOTE | 2019-02-10 10:01 | CASEMGMT ---
Addendum entered by Lia Silva 02/10/19 13:28: Call back from Alcides at [facility] [place] [facility] and he states that [facility] will deliver pt's tank between 1400 and 1500 today. mello Mata RN, updated at this time, voices understanding. Adela RN CM Original Note: Addendum entered by Lia Silva 02/10/19 13:09: F2F faxed to [facility] [place] [facility] at this time. Per Dr. Johnson after speaking with Jacinda from risk management, pt has to self report to his employer in regards to continuous home oxygen need at this time. Call to Alcides at [facility] [place] [facility] to verify that all information sent and received and to see if they have an idea when tank will be delivered and he states he will call this RN CM back once information obtained. Adela RN CORETTA Original Note: Addendum entered by Lia Silva 02/10/19 11:36: Donya from [facility] left a message for this RN CM stating that [facility] needs order faxed and they should be able to get tanks here for pt and she states that pt needs address updated as only PO box is listed. This RN CM updated address per pt at this time and received call from Alcides at [facility] [place] [facility] stating they have a company, [employer], that is local to [facility] and he states that they will be able to deliver tanks to [facility] for pt to be able to be transported by his back to [place] and then [facility] will deliver oxygen to his home in [place]. Referral faxed to [facility] [place] [facility] at this time and will fax F2F once obtained. Alcides is aware that pt will need 4L continuous at discharge and will have a 4 hour drive home, voices understanding. Dr. Johnson asked this RN CM about notifying pt's employer in regards to being on oxygen now and the liabilities with driving truck and he then placed a call to risk darren Maynard in regards to same at this time. Pt had advised this RN CM that he will not be able to drive truck if he is on oxygen. Adela RN CORETTA Original Note: Pt will require home oxygen at discharge. Per [facility] website, the only in-network DME provider is [facility] in [place] and there are no locations in [place]. Call to [facility] insurance to see if any other providers could be approved and per Donya KRAMER CM for pt's case, she states that pt lives in [place] so just set him up with [facility]. Advised Donya that pt will need a tank set up to get back to [place] on and then can be set up with [facility] at that time. She states that she called [facility] and will let this RN CM know when they call her back what they say. This RN CM to room to update pt and pt is not happy with going home on oxygen at this time. Pt at first states that he wants to leave without the oxygen but advised him that Dr. Martinez was very adamant that pt needed oxygen at discharge(see qualifying documentation) and per Dr. Martinez, pt would have to sign out AMA if he did not discharge home with oxygen. 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 Pt states 'I am going to lose my job because of this' but then states 'I know it's my own fault and I am done smoking from here on out.' Pt states that his is on the way from [place] to pick him up and states its about a [address]. Pt is agreeable to the oxygen at this time and is aware that this RN CM is working on getting it set up, voices understanding. Pt voices no further questions/concerns/needs at this time. CM awaiting call back from [facility] insurance regarding home oxygen, if do not hear from them, will call [facility] home medical directly. Adela KRAMER CM
[2019-02-10] MEDS: amLODIPine 2.5 MG Tablet PO (10:04)
--- NOTE | 2019-02-10 11:33 | PN_ITS ---
Patient Problems: Active and Suspected Problems (Last Updated 02/06/19 @ 19:46 by James Mancia MD) Acute hypoxemic respiratory failure (Acute) Bilateral lower extremity edema (Acute) Subjective: The patient was seen and examined at the bedside this morning. Events from the last 24 hours have been reviewed. The patient is currently afebrile, hemodynamically stable and maintaining appropriate oxygen saturations on 4 L/min via nasal cannula. There are tentative plans for the patient to be discharged home today on supplemental oxygen. 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 There are plans for oxygen tanks to be delivered to the patient's room, after which time, he will be picked up by his and driven back to [place]. I did explain to him that it was his responsibility to self- report his medical findings, including the need for supplemental oxygen to the appropriate authorities. 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 Objective: The patient's most recent lab work, culture data and imaging studies have all been personally reviewed. Echocardiogram shows an EF of 75% with diastolic dysfunction. Right ventricular systolic pressure estimated at 55 mmHg with mild to moderate global RV systolic dysfunction. - Physical Exam General: Alert, Cooperative, No apparent distress HEENT: Atraumatic, PERRLA, Normocephalic Oral: No Gingival or Mucosal Lesions/ Ulcerations Neck: Supple, No Nodes, Trachea Midline Lungs: - - Globally diminished air movement bilaterally. Cardiovascular: Normal S1, Normal S2, No murmurs, Tachycardic Abdomen: Bowel Sounds Present, Soft, Non Tender, Non-Distended Extremities: No cyanosis, Clubbing, Edema Skin: No breakdown Musculoskeletal: No Tenderness to Palpation of Joints or Extremities, No Muscle Wasting Lymphatic: No Cervical, Supraclavicular, or Inguinal Adenopathy Neurological: Cranial nerves II-XII grossly intact, Neuro grossly intact Psych/Mental Status: Alert and oriented to time, place, person, mood and affect Vital Signs Temp Pulse Resp BP Pulse Ox 97.5 F L 112 H 16 123/80 H 88 02/10/19 09:36 02/10/19 09:36 02/10/19 09:36 02/10/19 09:36 02/10/19 09:36 Oxygen Flow Rate (L/min) [ 4 AMBULATION with Oxygen] Oxygen Flow Rate (L/min) 3 Oxygen Delivery Method Nasal Cannula Weight: 203 lb 7.787 oz Body Mass Index (BMI) 30.1 Intake and Output for Last 24 Hours 02/08/19 02/09/19 02/10/19 23:59 23:59 23:59 Intake Total 2240 / 2240 1710 / 1710 570 / 570 Output Total 4875 / 4875 2750 / 2750 Balance -2635 / -2635 -1040 / -1040 570 / 570 Laboratory Tests Past 24 Hrs 02/09/19 13:23 Specimen Type LENNIE Sample Site R Radial VBG pH 7.36 VBG pO2 34 VBG O2 Sat (Calc) 58 VBG O2 Content > 50 H VBG Base Excess 26 H POC Mix VBG pCO2 Pt Tmp 90.6 H* O2 Delivery Device Nasal Can Liter Flow 4.0 Blood Gas Notified Whom ICU Blood Gas Notified Time 1325 Clinical Impression(s) from Imaging Studies Chest X-Ray 02/06/19 17:35 IMPRESSION: Severe changes of COPD with marked emphysema of the upper lobes and diffuse interstitial changes of the mid and lower lung zones which are probably mostly chronic in nature. Occasional small geometric confluent opacity likely to be fibrosis or atelectasis. Negative for a major area of consolidation, pleural effusion or cardiomegaly. No prior exams available for comparison. Electronically Signed: Ligia Alvarez MD at 18:04 EDT , Service support , Chest CTA 02/06/19 19:06 IMPRESSION: Grossly negative for pulmonary embolus. Somewhat suboptimal for small peripheral pulmonary emboli secondary to flow artifact as the bolus is diffuse on the pulmonary and systemic side. Mild atherosclerotic changes of the thoracic aorta without aneurysm or dissection. Normal cardiac size with coronary calcifications. Dilated pulmonary arteries suggesting pulmonary artery hypertension. Severe bullous emphysematous changes with the most severe changes in the left upper lobe. Posterior lower lobe consolidation and volume loss, right greater than left. Pneumonic infiltrates not excludable. Minimal right pleural effusion. Shoddy hilar and mediastinal lymph nodes. Generalized anasarca with a distended inferior vena cava. Electronically Signed: Ligia Alvarez MD at 20:54 EDT , Service support , Medical Necessity - Tobacco Use Smoking Status: Current every day smoker Tobacco Use: Cigarettes Assessment/Plan All Active Problems (Last Updated 02/06/19 @ 19:46 by James Mancia MD) Acute hypoxemic respiratory failure (Acute) Bilateral lower extremity edema (Acute) RECOMMENDATIONS: 1. Continue steroids and diuretic therapy. 2. Continue to keep saturations greater than 88% at all times 3. Walking oximetry prior to discharge 4. Outpatient complete PFT and local pulmonary follow-up. 5. Smoking cessation is strongly advised. IMPRESSIONS: 1. Acute hypoxic respiratory insufficiency/cor pulmonale This is likely multifactorial. Patient does have advanced emphysematous changes noted on CT scan of the chest. Patient also has dilated pulmonary arteries, vena cava and lower extremity edema indicating probable diastolic congestive heart failure. Patient does have elevated pulmonary artery pressures, likely secondary to chronic hypoxemia. Will need to continue with supplemental oxygen. High clinical suspicion that the supplemental oxygen will be required on discharge. Continue steroids, with plans to be discharged on prednisone 40 mg daily x5 days. The patient will need to establish care with a tile shader that is local to him in [place]. 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 2. Probable secondary polycythemia Given clubbing on exam and hemoglobin of 18, concern for prolonged hypoxemia secondary to COPD and probable secondary pulmonary hypertension. 3. Tobacco abuse/hypertension/poor primary follow-up Complicates care, management, recovery and prognosis. Nicotine patch can be added if necessary. Continue with lisinopril and Norvasc. Will need to watch renal function closely given NATHAN inhibitor and diuretics. This note was generated with [employer] dictation software. It may contain incorrect words, spelling, and punctuation that were not noted in checking the note before signing. Code Visit Inpatient E&M: 52808 Subs Hosp L2
--- NOTE | 2019-02-10 11:53 | PHA.DC.COU ---
Pharmacy Services has performed discharge medication counseling for this patient. The patient was counseled on the following discharge medications and changes in medications for homegoing review. 1. SYMBICORT 2. PROAIR 3. PREDNISONE 4. LASIX The Reason for Use, instructions for use, and potential side effects were reviewed for all new medications. The patient's questions regarding all of their medications were answered. The patient demonstrated some understanding but would benefit from further education and reinforcement.
--- NOTE | 2019-02-10 14:00 | CASEMGMT ---
Pt's is here to pick him up and pt is updated on home oxygen company at this time, voices understanding. Awaiting oxygen tank delivery at this time. Adela KRAMER CM
== END 2019-02-10 14:58 | disposition home or self-care (01) | DRG 189 ==
LOC: ED 16:56 → PCU 20:29
PROVIDERS: Hospitalist; Admitting Provider Hospitalist; Emergency Provider Emergency Medicine; Visit Provider Internal Medicine
DX: J96.01 Acute respiratory failure with hypoxia (principal); I50.31 Acute diastolic (congestive) heart failure; J44.1 Chronic obstructive pulmonary disease with (acute) exacerbation; J96.02 Acute respiratory failure with hypercapnia; I11.0 Hypertensive heart disease with heart failure; D75.1 Secondary polycythemia; E87.5 Hyperkalemia; F17.210 Nicotine dependence, cigarettes, uncomplicated; Z99.81 Dependence on supplemental oxygen; Z79.899 Other long term (current) drug therapy
CPT/HCPCS: 36415; 71045; 71275; 80048; 82040; 82330; 82803; 83036; 83735; 83880; 84132; 84484; 85025; 85045; 93005; 93306; 93970; 94640; 94667; 94668; 97110; 97802; 99285; 99406; J7030; Q9957; Q9967; A4216; J1940